=== PATIENT | male | born 1975 | race Caucasian/White ===

== ENCOUNTER → 2019-05-25 | Outpatient (REF) | payer OTHER, MEDICAID ==
[2019-05-25 17:41] LABS: ALBUMIN 3.8 GM/DL (3.2-5.2); ALT/SGPT 47 U/L (12-78); BILIRUBIN,TOTAL 0.8 MG/DL (0.2-1.0); BLOOD UREA NITROGEN 16 MG/DL (7-18); CALCIUM LEVEL 8.7 MG/DL (8.5-10.1); CARBON DIOXIDE LEVEL 29 MEQ/L (21-32); CHLORIDE LEVEL 105 MEQ/L (98-107); CHOLESTEROL LEVEL 149 MG/DL (<200); CHOLESTEROL RISK RATIO 4.257 (<5); CREATININE FOR GFR 0.92 MG/DL (0.70-1.30); FREE T4 1.05 NG/DL (0.76-1.46); GLOMERULAR FILTRATION RATE > 60.0 (>60); GLUCOSE, FASTING 116 MG/DL (70-100); HDL CHOLESTEROL 35 MG/DL (>40); LDL CHOLESTEROL 82 MG/DL (<100); NON-HDL-C 114 MG/DL; POTASSIUM SERUM 4.1 MEQ/L (3.5-5.1); SODIUM LEVEL 140 MEQ/L (136-145); TOTAL 25(OH) VITAMIN D 19.6 NG/ML (30.0-100.0); TOTAL PROTEIN 7.4 GM/DL (6.4-8.2); TRIGLYCERIDES LEVEL 158 MG/DL (<150)
[2019-05-25 17:43] LABS: HEMOGLOBIN A1c 6.2 %
[2019-05-25 18:24] LABS: BASO # 0.1 10^3/uL (0.0-0.2); BASO % 0.9 % (0.0-1.0); EOS # 0.2 10^3/uL (0.0-0.50); EOS % 3.6 % (0.0-3.0); HEMATOCRIT 52.9 % (42.0-52.0); HEMOGLOBIN 17.7 g/dl (13.5-17.5); LYMPH # 2.2 10^3/uL (1.5-4.5); LYMPH % 33.1 % (24.0-44.0); MEAN CORPUSCULAR HGB CONC 33.5 g/dl (32.0-36.5); MEAN CORPUSCULAR VOLUME 89.7 fl (80.0-96.0); MONO # 0.8 10^3/uL (0.0-0.8); NEUTROPHILS # 3.4 10^3/uL (1.8-7.7); NEUTROPHILS % 50.1 % (36.0-66.0); PLATELET COUNT, AUTOMATED 169 10^3/uL (150-450); WHITE BLOOD COUNT 6.7 10^3/uL (4.0-10.0)
== END ==
LOC: M LAB REF 16:35
PROVIDERS: ATTEND Nurse Practitioner Family
DX: Z13.9 Encounter for screening, unspecified (principal); E66.1 Drug-induced obesity

== ENCOUNTER 2020-02-03 05:01 | Inpatient (IN) | payer OTHER ==
[~2020-02-03] VITALS: Ht 177.8 cm; Wt 134.4 kg
[2020-02-03] MEDS ORDERED: ASPI81TA85 PO (05:07)
[2020-02-03 06:06] LABS: BASO # 0.1 10^3/uL (0.0-0.2); BASO % 0.7 % (0.0-1.0); EOS # 0.2 10^3/uL (0.0-0.5); EOS % 2.3 % (0.0-3.0); HEMATOCRIT 48.9 % (42.0-52.0); LYMPH # 1.6 10^3/uL (1.5-5.0); LYMPH % 16.2 % (24.0-44.0); MEAN CORPUSCULAR HEMOGLOBIN 29.8 pg (27.0-33.0); MEAN CORPUSCULAR HGB CONC 34.8 g/dl (32.0-36.5); MEAN CORPUSCULAR VOLUME 85.6 fl (80.0-96.0); MONO # 1.3 10^3/uL (0.0-0.8); MONO % 13.2 % (0.0-5.0); NEUTROPHILS # 6.7 10^3/uL (1.5-8.5); NEUTROPHILS % 67.2 % (36.0-66.0); PLATELET COUNT, AUTOMATED 132 10^3/uL (150-450); RED BLOOD COUNT 5.71 10^6/uL (4.30-6.10); WHITE BLOOD COUNT 9.9 10^3/uL (4.0-10.0)
[2020-02-03 06:12] LABS: INR 1.15; PROTHROMBIN TIME 14.4 SECONDS (11.8-14.0)
--- NOTE | 2020-02-03 06:21 | REPVR ---
PROCEDURE INFORMATION: Exam: US Duplex Left Lower Extremity Veins, Limited Exam date and time: 02/03/2020 6:10 AM Age: 44 years old Clinical indication: Pain; Leg, upper and leg, lower; Left; Additional info: Left leg swelling TECHNIQUE: Imaging protocol: Real-time Duplex ultrasound of the Left Lower Extremity with 2-D wood scale, color Doppler flow and spectral waveform analysis with image documentation. Limited exam focused on the left lower extremity veins. COMPARISON: No relevant prior studies available. FINDINGS: Deep veins: Abnormal intraluminal echogenicity throughout the level of the common femoral, superficial femoral, popliteal veins consistent with venous thrombosis with absence of venous flow consistent with complete exclusion. Superficial veins: Abnormal echogenicity at the greater saphenous junction. There is absence of compression or venous flow demonstrated. Soft tissues: Unremarkable. IMPRESSION: Complete occlusion deep venous thrombosis left common femoral through the popliteal distribution and greater saphenous junction. Electronically signed by: Roro Orantes On 02/03/2020 06:21:24 AM
[2020-02-03 06:32] LABS: BLOOD UREA NITROGEN 22 MG/DL (7-18); C REACTIVE PROTEIN QUANTITATIV 1.78 MG/DL (0.00-0.30); CARBON DIOXIDE LEVEL 28 MEQ/L (21-32); CHLORIDE LEVEL 106 MEQ/L (98-107); CREATININE FOR GFR 0.87 MG/DL (0.70-1.30); GLOMERULAR FILTRATION RATE > 60.0 (>60); GLUCOSE, FASTING 154 MG/DL (70-100); POTASSIUM SERUM 4.2 MEQ/L (3.5-5.1); SODIUM LEVEL 137 MEQ/L (136-145)
[2020-02-03] MEDS ORDERED: ISOVUE-370 76% 100ML VIAL As Ordered ONE (06:38)
--- NOTE | 2020-02-03 07:22 | REPVR ---
PROCEDURE INFORMATION: Exam: CT Angiography Chest With Contrast Exam date and time: 02/03/2020 6:25 AM Age: 44 years old Clinical indication: Shortness of breath; Additional info: SOB, tachycardia, dvt TECHNIQUE: Imaging protocol: Computed tomographic angiography of the chest with intravenous contrast. 3D rendering: MIP and/or 3D reconstructed images were created by the technologist. Radiation optimization: All CT scans at this facility use at least one of these dose optimization techniques: automated exposure control; mA and/or kV adjustment per patient size (includes targeted exams where dose is matched to clinical indication); or iterative reconstruction. Contrast material: ISO; Contrast volume: 75 ml; Contrast route: AC; COMPARISON: No relevant prior studies available. FINDINGS: Pulmonary arteries: Markedly limited assessment for the presence of pulmonary embolus due to delayed film contrast timing abnormality and diminished intensity of contrast within pulmonary arteries. Additional limitation by prominent motion degradation. Aorta: Trace calcification thoracic aortic arch. Lungs: Unremarkable. No consolidation. No masses. Pleural space: Unremarkable. No pneumothorax. No pleural effusion. Heart: Unremarkable. No cardiomegaly. No pericardial effusion. Right to left ventricular ratio 1.1. Adrenals: Calcification right adrenal gland. Stomach and bowel: Medication item likely within the stomach lumen. Lymph nodes: Unremarkable. No enlarged lymph nodes. Bones/joints: Degenerative change of the spine. Chronic fracture deformity of the right clavicle. Soft tissues: Unremarkable. IMPRESSION: 1. No visualized pulmonary embolus for the level of images acquired. Electronically signed by: Roro Orantes On 02/03/2020 07:21:30 AM
[2020-02-03] MEDS ORDERED: ONDANSETRON 4MG/2ML VIAL IV ONE (08:00)
[2020-02-03] MEDS ORDERED: HEPARIN SOD (PORCINE) 5000UNITS/ML VIAL (J1644 PER 1000UNITS) IV ONE (08:00)
[2020-02-03] MEDS ORDERED: NICOTINE POLACRILEX 2 MG GUM PO ONE (08:00)
[2020-02-03] MEDS ORDERED: HEPARIN DRIP 25,000 UNITS in IV 1 EA IV SCH (08:15)
[2020-02-03 08:29] LABS: BASO # 0.1 10^3/uL (0.0-0.2); BASO % 0.8 % (0.0-1.0); EOS # 0.1 10^3/uL (0.0-0.5); EOS % 0.9 % (0.0-3.0); HEMATOCRIT 49.3 % (42.0-52.0); HEMOGLOBIN 16.4 g/dl (13.5-17.5); LYMPH # 1.5 10^3/uL (1.5-5.0); LYMPH % 12.1 % (24.0-44.0); MEAN CORPUSCULAR HEMOGLOBIN 28.8 pg (27.0-33.0); MEAN CORPUSCULAR HGB CONC 33.3 g/dl (32.0-36.5); MEAN CORPUSCULAR VOLUME 86.6 fl (80.0-96.0); MONO # 1.5 10^3/uL (0.0-0.8); MONO % 11.7 % (0.0-5.0); NEUTROPHILS # 9.5 10^3/uL (1.5-8.5); NEUTROPHILS % 74.2 % (36.0-66.0); PLATELET COUNT, AUTOMATED 127 10^3/uL (150-450); RED BLOOD COUNT 5.69 10^6/uL (4.30-6.10); WHITE BLOOD COUNT 12.8 10^3/uL (4.0-10.0)
[2020-02-03] MEDS: MORPHINE 2 MG/ML 1ML VIAL (J2270) IV PRN ×2 (08:34→10:56)
[2020-02-03 08:55] LABS: ALBUMIN 3.9 GM/DL (3.2-5.2); ALT/SGPT 31 U/L (12-78); BILIRUBIN,DIRECT 0.2 MG/DL (0.0-0.2); BILIRUBIN,TOTAL 0.9 MG/DL (0.2-1.0); BLOOD UREA NITROGEN 19 MG/DL (7-18); CALCIUM LEVEL 8.8 MG/DL (8.5-10.1); CARBON DIOXIDE LEVEL 24 MEQ/L (21-32); CHLORIDE LEVEL 105 MEQ/L (98-107); CREATININE FOR GFR 0.85 MG/DL (0.70-1.30); GLOMERULAR FILTRATION RATE > 60.0 (>60); GLUCOSE, FASTING 121 MG/DL (70-100); POTASSIUM SERUM 4.5 MEQ/L (3.5-5.1); SODIUM LEVEL 136 MEQ/L (136-145)
[2020-02-03] MEDS ORDERED: ISOVUE-300 61% 50ML VIAL As Ordered ONE ×4 (09:51→14:17)
[2020-02-03] MEDS ORDERED: LIDOCAINE 1% MDV 20ML VIAL As Ordered ONE (09:51)
[2020-02-03] MEDS ORDERED: HEPARIN SOD (PORCINE) 5000UNITS/ML VIAL (J1644 PER 1000UNITS) IV PRN (10:45)
[2020-02-03 11:03] LABS: DRVV SCREEN 32.6 SEC
[2020-02-03 11:06] LABS: PTT LUPUS TYPE ANTICOAG SCREEN 0.8 (0-1.2)
[2020-02-03] MEDS ORDERED: diphenhydrAMINE 50MG/ML VIAL (J1200) As Ordered ONE (11:08)
[2020-02-03] MEDS ORDERED: MIDAZOLAM INJ 2MG/2ML VIAL (J2250 PER 1MG) As Ordered ONE ×2 (11:09→13:03)
[2020-02-03] MEDS ORDERED: fentaNYL 100 MCG/2 ML INJECTION (J3010) As Ordered ONE ×2 (11:09→13:03)
--- NOTE | 2020-02-03 11:59 | IRMSE ---
[facility] IR Moderate Sedation Eval. Date and Time Date: Feb 03, 2020 Time: 11:58 ASA Classification ASA Classification: II-Mild systemic disease Mallampati Score: II NPO: Yes Obstructive Sleep Apnea: No Interval Plan: moderate sedation ARNAUD MÁRQUEZ MD Feb 03, 2020 11:59
--- NOTE | 2020-02-03 12:34 | HPEPDOC ---
[facility] Medical History & Physical Date of Admission Feb 03, 2020 Date of Service: Feb 03, 2020 Attending Physician: AUGUST GEORGE MD History and Physical CHIEF COMPLAINT: Leg pain and swelling HISTORY OF PRESENT ILLNESS: 44 y.o male w/ history of obesity & prediabetes presents with left leg pain and swelling. He hurt his low back 10 days ago while lifting a heavy box. He has been practically bed bound since then, started noticing L leg pain/swelling over the past couple of days, came to the hospital today due to worsening of symptoms. He denies any associated symptoms, denies SOB, CP, N/V/D or abdominal pain. In the ED, he is found to have large occlusive LLE DVT. He has been started on heparin gtt and hospitalist service called for admission. 10 point review of system is negative except for above. PAST MEDICAL HISTORY: 1. Prediabetic PAST SURGICAL HISTORY: 1. Multiple joint surgeries SOCIAL HISTORY: Smokes 1/2 PPD social alcohol use rare marijuana use FAMILY HISTORY: Heart disease on mother's side ALLERGIES: Please see below. HOME MEDICATIONS: Please see below. PHYSICAL EXAMINATION: VITAL SIGNS: See below GENERAL APPEARANCE: No distress, morbidly obese HEENT: Moist mucus membranes CARDIOVASCULAR: S1, S2, tachycardic LUNGS: poor air movement, diminished ABDOMEN: soft, non-tender, non-distended, +BS EXTREMITIES: LLE with erythema, tenderness to palpation & swelling NEUROLOGICAL: No focal deficits PSYCHIATRIC: anxious LABORATORY DATA: See below. IMAGING: LE doppler showing occlusive DVT from common femoral to the popliteal vein MICROBIOLOGY: Please see below. ASSESSMENT: 44 y.o male w/o any PMH is a being admitted to new, large LLE DVT after being immobile secondary to back pain. PLAN: 1. Large, occlusive, Left lower extremity DVT - heparin gtt, IR consulted for thrombectomy/TPA, plan for procedure later today, NPO, CTA negative for PE. hemodynamically stable, on RA. 2. Smoker/Pre-diabetic/Morbidly obese - counseled regarding smoking cessation, exercise & diet control for weight loss. DVT prophylaxis - Heparin gtt GI prophylaxis - not needed at this time. Vital Signs Vital Signs Date Time Temp Pulse Resp B/P (MAP) Pulse Ox O2 Delivery O2 Flow Rate FiO2 02/03/20 10:56 18 Room Air 02/03/20 09:16 117 94 02/03/20 08:46 122/84 (97) 02/03/20 05:02 97.2 Laboratory Data Labs 24H Laboratory Tests 2 02/03/20 05:53: Immature Granulocyte % (Auto) 0.4, Neutrophils (%) (Auto) 67.2H, Lymphocytes (%) (Auto) 16.2L, Monocytes (%) (Auto) 13.2H, Eosinophils (%) (Auto) 2.3, Basophils (%) (Auto) 0.7, Neutrophils # (Auto) 6.7, Lymphocytes # (Auto) 1.6, Monocytes # (Auto) 1.3H, Eosinophils # (Auto) 0.2, Basophils # (Auto) 0.1, Nucleated Red Blood Cells % (auto) 0.0, Prothrombin Time 14.4H, Prothromb Time International Ratio 1.15, Activated Partial Thromboplast Time 28.0, Anion Gap 3L, Glomerular Filtration Rate > 60.0, Calcium Level 9.0, C-Reactive Protein, Quantitative 1.78H 02/03/20 08:13: Immature Granulocyte % (Auto) 0.3, Neutrophils (%) (Auto) 74.2H, Lymphocytes (%) (Auto) 12.1L, Monocytes (%) (Auto) 11.7H, Eosinophils (%) (Auto) 0.9, Basophils (%) (Auto) 0.8, Neutrophils # (Auto) 9.5H, Lymphocytes # (Auto) 1.5, Monocytes # (Auto) 1.5H, Eosinophils # (Auto) 0.1, Basophils # (Auto) 0.1, Nucleated Red Blood Cells % (auto) 0.0, Anion Gap 7L, Glomerular Filtration Rate > 60.0, Otoniel cium Level 8.8, Lupus Anticoag DRVVT Screen Ratio 0.8, Total Bilirubin 0.9, Direct Bilirubin 0.2, Aspartate Amino Transf (AST/SGOT) 16, Alanine Aminotransferase (ALT/SGPT) 31, Alkaline Phosphatase 95, Total Protein 8.0, Albumin 3.9, Albumin/Globulin Ratio 0.95L 02/03/20 10:56: CBC/BMP Laboratory Tests 02/03/20 05:53 02/03/20 08:13 Home Medications Scheduled Aspirin (Aspir 81) 81 Mg Tablet.dr, 81 MG PO DAILY Allergies Coded Allergies: No Known Drug Allergies (Verified Allergy, Unknown, 02/03/20) A-FIB/CHADSVASC A-FIB History Current/History of A-Fib/PAF?: No AUGUST GEORGE MD Feb 03, 2020 12:34
[2020-02-03] MEDS ORDERED: PROMETHAZINE INJ 25 MG/ML VIAL (J2550) As Ordered ONE (13:08)
--- NOTE | 2020-02-03 14:48 | POST-OPPD ---
Postoperative Procedure Note Date Of Procedure: Feb 03, 2020 Time Of Procedure: 14:44 PREOPERATIVE DIAGNOSIS: LLE DVT POSTOPERATIVE DIAGNOSIS: same FINDINGS: absent IVC. Azygos and hemiazygous drainage via collaterals. Thrombus in left femoral vein and common femoral vein. Thrombectomy performed. But poor central drainage due to congenital or chronic venous anomalies. Will require further work up with CTV or MRV. Continue heparin and initiate alf anticoagulation. PROCEDURE: venogram and mechanical thrombectomy SURGEON: isa ANESTHESIA: mod sed ESTIMATED BLOOD LOSS: 200 ml COMPLICATIONS: none POSTOPERATIVE CONDITION: stable ARNAUD MÁRQUEZ MD Feb 03, 2020 14:48
[2020-02-03 15:00] VITALS: BP 140/100
[2020-02-03 15:15] VITALS: BP 143/101
[2020-02-03 15:30] VITALS: BP 170/118
[2020-02-03] MEDS ORDERED: ACETAMINOPHEN TAB 650MG DOSE (2X325MG) PO PRN (15:30)
[2020-02-03 15:45] VITALS: BP 198/136
[2020-02-03 16:00] VITALS: BP 180/126
[2020-02-03] MEDS: HEPARIN DRIP 25,000 UNITS in IV 1 EA IV SCH (16:30)
[2020-02-03 20:00] VITALS: BP 160/98
[2020-02-04] VITALS: BP 155/90
--- NOTE | 2020-02-04 00:48 | ECGEPIP ---
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
[2020-02-04] MEDS: HEPARIN DRIP 25,000 UNITS in IV 1 EA IV SCH ×4 (01:20→15:37)
[2020-02-04] MEDS: MORPHINE 4 MG/ML 1ML VIAL/SYRINGE (J2270) IV PRN ×3 (01:23→20:16)
[2020-02-04 04:00] VITALS: BP 140/93
[2020-02-04 06:40] LABS: HEMATOCRIT 43.6 % (42.0-52.0); HEMOGLOBIN 14.7 g/dl (13.5-17.5); MEAN CORPUSCULAR HEMOGLOBIN 29.4 pg (27.0-33.0); MEAN CORPUSCULAR HGB CONC 33.7 g/dl (32.0-36.5); MEAN CORPUSCULAR VOLUME 87.2 fl (80.0-96.0); PLATELET COUNT, AUTOMATED 123 10^3/uL (150-450); WHITE BLOOD COUNT 11.9 10^3/uL (4.0-10.0)
[2020-02-04 07:04] LABS: ALBUMIN 3.3 GM/DL (3.2-5.2); ALT/SGPT 33 U/L (12-78); BILIRUBIN,TOTAL 1.7 MG/DL (0.2-1.0); BLOOD UREA NITROGEN 21 MG/DL (7-18); CALCIUM LEVEL 8.4 MG/DL (8.5-10.1); CARBON DIOXIDE LEVEL 26 MEQ/L (21-32); CHLORIDE LEVEL 101 MEQ/L (98-107); CREATININE FOR GFR 0.89 MG/DL (0.70-1.30); GLOMERULAR FILTRATION RATE > 60.0 (>60); GLUCOSE, FASTING 158 MG/DL (70-100); MAGNESIUM LEVEL 1.9 MG/DL (1.8-2.4); POTASSIUM SERUM 3.8 MEQ/L (3.5-5.1); SODIUM LEVEL 134 MEQ/L (136-145); TOTAL PROTEIN 7.4 GM/DL (6.4-8.2)
[2020-02-04 08:00] VITALS: BP 146/97
--- NOTE | 2020-02-04 11:06 | IPNPDOC ---
Date Seen The patient was seen on 02/04/20. Progress Note SUBJECTIVE: 44 y.o male w/ history of obesity & prediabetes , was admitted for large left lower extremity DVT. Patient underwent mechanical thrombectomy by interventional radiology yesterday, tolerated the procedure well, having pain, which is well controlled, no other complaint at this time. He denies any shortness of breath, chest pain, nausea, vomiting, diarrhea or constipation. 10 point review of system is negative except for above. PHYSICAL EXAMINATION: VITAL SIGNS: See below GENERAL APPEARANCE: No distress, morbidly obese HEENT: Moist mucus membranes CARDIOVASCULAR: S1, S2, tachycardic LUNGS: poor air movement, diminished ABDOMEN: soft, non-tender, non-distended, +BS EXTREMITIES: LLE with erythema, tenderness to palpation & swelling NEUROLOGICAL: No focal deficits PSYCHIATRIC: anxious LABORATORY DATA: See below. MICROBIOLOGY: Please see below. ASSESSMENT: 44 y.o male w/o any PMH is a being admitted to new, large LLE DVT after being immobile secondary to back pain. PLAN: 1. Large, occlusive, Left lower extremity DVT - Status post mechanical thrombectomy by interventional radiology, continue heparin gtt, titration with target PTT has been difficult, will switch to Lovenox if PTT control remains poor tomorrow. 2. Smoker/Pre-diabetic/Morbidly obese - counseled regarding smoking cessation, exercise & diet control for weight loss. DVT prophylaxis - Heparin gtt GI prophylaxis - not needed at this time. VS, I&O, 24H, Fishbone Vital Signs/I&O Vital Signs Date Time Temp Pulse Resp B/P (MAP) Pulse Ox O2 Delivery O2 Flow Rate FiO2 02/04/20 08:00 97.3 111 20 146/97 (113) 92 Room Air 02/03/20 14:25 2 I&O- Last 24 Hours up to 6 AM 02/04/20 06:00 Intake Total 840 ml Output Total 0 ml Balance 840 ml Laboratory Data 24H LABS Laboratory Tests 2 02/03/20 12:16: Activated Partial Thromboplast Time 186.3*H 02/03/20 15:51: Activated Partial Thromboplast Time 30.1 02/03/20 18:36: Activated Partial Thromboplast Time 47.4H 02/04/20 00:31: Activated Partial Thromboplast Time > 240.0*H 02/04/20 05:59: Nucleated Red Blood Cells % (auto) 0.0, Anion Gap 7L, Glomerular Filtration Rate > 60.0, Calcium Level 8.4L, Magnesium Level 1.9, Total Bilirubin 1.7#H, Aspartate Amino Transf (AST/SGOT) 28, Alanine Aminotransferase (ALT/SGPT) 33, Alkaline Phosphatase 60, Total Protein 7.4, Albumin 3.3, Albumin/Globulin Ratio 0.80L 02/04/20 08:31: Activated Partial Thromboplast Time 169.6*H 02/04/20 09:51: Activated Partial Thromboplast Time 150.4*H 02/04/20 10:50: CBC/BMP Laboratory Tests 02/04/20 05:59 AUGUST GEORGE MD Feb 04, 2020 11:06
[2020-02-04 12:00] VITALS: BP 148/83
[2020-02-04] MEDS ORDERED: ONDANSETRON 4MG/2ML VIAL IV PRN (15:45)
[2020-02-04 16:00] VITALS: BP 145/94
[2020-02-04 20:00] VITALS: BP 126/87
[2020-02-05] VITALS (7 sets, daily range): BP systolic 137–160; BP diastolic 75–103
[2020-02-05] MEDS: MORPHINE 4 MG/ML 1ML VIAL/SYRINGE (J2270) IV PRN (05:20)
[2020-02-05] MEDS: HEPARIN DRIP 25,000 UNITS in IV 1 EA IV SCH ×2 (06:01→20:02)
[2020-02-05 06:46] LABS: HEMATOCRIT 40.1 % (42.0-52.0); HEMOGLOBIN 13.6 g/dl (13.5-17.5); MEAN CORPUSCULAR HEMOGLOBIN 29.4 pg (27.0-33.0); MEAN CORPUSCULAR HGB CONC 33.9 g/dl (32.0-36.5); MEAN CORPUSCULAR VOLUME 86.8 fl (80.0-96.0); PLATELET COUNT, AUTOMATED 131 10^3/uL (150-450); RED BLOOD COUNT 4.62 10^6/uL (4.30-6.10); WHITE BLOOD COUNT 12.1 10^3/uL (4.0-10.0)
[2020-02-05 07:05] LABS: BLOOD UREA NITROGEN 20 MG/DL (7-18); CALCIUM LEVEL 8.8 MG/DL (8.5-10.1); CARBON DIOXIDE LEVEL 28 MEQ/L (21-32); CHLORIDE LEVEL 98 MEQ/L (98-107); CREATININE FOR GFR 0.81 MG/DL (0.70-1.30); GLOMERULAR FILTRATION RATE > 60.0 (>60); GLUCOSE, FASTING 166 MG/DL (70-100); PHOSPHORUS LEVEL 2.6 MG/DL (2.5-4.9); POTASSIUM SERUM 3.8 MEQ/L (3.5-5.1); SODIUM LEVEL 131 MEQ/L (136-145)
[2020-02-05] MEDS: MIRALAX *UNIT DOSE* 17GM PACKET PO PRN (10:15)
[2020-02-05] MEDS: PERCOCET 5MG/325MG TAB PO PRN ×3 (11:10→22:35)
--- NOTE | 2020-02-05 15:16 | IPNPDOC ---
Date Seen The patient was seen on 02/05/20. Progress Note SUBJECTIVE: 44 y.o male w/ history of obesity & prediabetes , was admitted for large left lower extremity DVT, underwent thrombectomy by IR. Patient seen in the morning, no events overnight, comfortable, no complaints at this time. He denies any shortness of breath, chest pain, nausea, vomiting, diarrhea or constipation. 10 point review of system is negative except for above. PHYSICAL EXAMINATION: VITAL SIGNS: See below GENERAL APPEARANCE: No distress, morbidly obese HEENT: Moist mucus membranes CARDIOVASCULAR: S1, S2, tachycardic LUNGS: poor air movement, diminished ABDOMEN: soft, non-tender, non-distended, +BS EXTREMITIES: LLE with erythema, tenderness to palpation & swelling NEUROLOGICAL: No focal deficits PSYCHIATRIC: anxious LABORATORY DATA: See below. MICROBIOLOGY: Please see below. ASSESSMENT: 44 y.o male w/o any PMH is a being admitted to new, large LLE DVT after being immobile secondary to back pain. PLAN: 1. Large, occlusive, Left lower extremity DVT - Status post mechanical thrombectomy by interventional radiology, continue heparin gtt, PTT therapeutic, continue heparin gtt for today, transition to oral AC tomorrow. 2. Smoker/Pre-diabetic/Morbidly obese - counseled regarding smoking cessation, exercise & diet control for weight loss. DVT prophylaxis - Heparin gtt GI prophylaxis - not needed at this time. VS, I&O, 24H, Fishbone Vital Signs/I&O Vital Signs Date Time Temp Pulse Resp B/P (MAP) Pulse Ox O2 Delivery O2 Flow Rate FiO2 02/05/20 12:04 18 02/05/20 12:00 96.5 112 148/95 (112) 95 Room Air 02/03/20 14:25 2 I&O- Last 24 Hours up to 6 AM 02/05/20 06:00 Intake Total 1800 ml Output Total 300 ml Balance 1500 ml Laboratory Data 24H LABS Laboratory Tests 2 02/04/20 18:15: Activated Partial Thromboplast Time 69.1H 02/04/20 23:49: Activated Partial Thromboplast Time 80.8H 02/05/20 06:31: Activated Partial Thromboplast Time 69.4H, Nucleated Red Blood Cells % (auto) 0.0, Anion Gap 5L, Glomerular Filtration Rate > 60.0, Calcium Level 8.8, Phosphorus Level 2.6 CBC/BMP Laboratory Tests 02/05/20 06:31 AUGUST GEORGE MD Feb 05, 2020 15:16
[2020-02-06] VITALS: BP 168/75
[2020-02-06] MEDS: PERCOCET 5MG/325MG TAB PO PRN ×3 (02:42→15:21)
[2020-02-06 04:00] VITALS: BP 146/77
[2020-02-06 04:48] LABS: HEMATOCRIT 35.4 % (42.0-52.0); HEMOGLOBIN 11.9 g/dl (13.5-17.5); MEAN CORPUSCULAR HEMOGLOBIN 29.2 pg (27.0-33.0); MEAN CORPUSCULAR HGB CONC 33.6 g/dl (32.0-36.5); PLATELET COUNT, AUTOMATED 143 10^3/uL (150-450); RED BLOOD COUNT 4.07 10^6/uL (4.30-6.10); WHITE BLOOD COUNT 11.1 10^3/uL (4.0-10.0)
[2020-02-06 05:20] LABS: BLOOD UREA NITROGEN 19 MG/DL (7-18); CALCIUM LEVEL 7.9 MG/DL (8.5-10.1); CARBON DIOXIDE LEVEL 29 MEQ/L (21-32); CHLORIDE LEVEL 98 MEQ/L (98-107); CREATININE FOR GFR 0.68 MG/DL (0.70-1.30); GLOMERULAR FILTRATION RATE > 60.0 (>60); GLUCOSE, FASTING 132 MG/DL (70-100); POTASSIUM SERUM 3.8 MEQ/L (3.5-5.1); SODIUM LEVEL 133 MEQ/L (136-145)
[2020-02-06 08:00] VITALS: BP 160/76
[2020-02-06] MEDS ORDERED: ELIQ5TAB PO (08:31)
[2020-02-06] MEDS ORDERED: APIXABAN 5 MG TAB (ELIQUIS) PO SCH (09:00)
[2020-02-06] MEDS: MIRALAX *UNIT DOSE* 17GM PACKET PO PRN (09:15)
--- NOTE | 2020-02-06 11:15 | REP ---
IR Left leg venography. IR Left femoral vein, common femoral vein and iliac vein venography. IR Left femoral, common femoral and iliac vein mechanical thrombectomy. IR DVT mechanical thrombectomy. IR Central venography. IR Moderate sedation. IR Ultrasound guided right common femoral vein access. IR Ultrasound guided left popliteal vein access. Clinical information: Extreme left lower extremity swelling, pain and occlusive left lower extremity deep vein thrombosis including common femoral on ultrasound. Physician: Dr. Castro. Procedure: The patient was advised of the benefits, risks and alternatives of the procedure and informed consent was obtained. The time-out was performed with verification of the patient's name MRN, site of procedure and type of procedure to be performed. The patient was positioned in the supine position on the angiographic table. The site was prepped and draped in the usual sterile fashion. Moderate sedation was performed by the physician including the presence of an independent trained observer who assisted in monitoring the patient's level of consciousness and physiologic status. Following the administration of fentanyl and Versed , the physician spent 120 minutes of continuous face to face time with the patient. A hazmat technician radiograph reveals no gross abnormality. Ultrasound of the right groin demonstrates patent and compressible right common femoral vein. A micropuncture needle was used under ultrasound guidance to access the right common femoral vein. An 018 wire was advanced into the central vein and the micropuncture needle was exchanged for a micro sheath. The micro sheath was exchanged over the wire for a filter sheath, under fluoroscopy guidance. The filter sheath was positioned in the right common femoral vein and a central venogram was performed. 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 Tortuous collaterals, and hypertrophy of the azygos system with filling of paravertevral collaterals. There is central drainage via multiple tortuous collaterals and hypertrophied azygos and michel azygos system. The patient is not suitable for IVC filter placement. Access was removed, pressure held and hemostasis achieved. A sterile dressing was applied to the site. Ultrasound of the left popliteal fossa was then performed and demonstrates partially incompressible left popliteal vein. A micropuncture needle was used under ultrasound guidance to access the left popliteal vein. An 018 wire was advanced into the femoral vein under fluoroscopy guidance and the micropuncture needle was exchanged for a micro sheath. The micro sheath was exchanged under fluoroscopy guidance for an 8-[place] sheath. A left leg venogram was performed and this demonstrates expanded mid and distal femoral vein with central filling defect indicating acute thrombus within the femoral vein. A venogram further up the left leg was performed and this demonstrates complete occlusion of the central left femoral, left common femoral and iliac vein. No central drainage from the left leg. A CAT 8 mechanical thrombectomy device was advanced over the wire under fluoroscopy guidance and used to catheterize the peripheral left femoral vein. Mechanical thrombectomy was performed in the left femoral vein. Full systemic heparinization was continued. Intermittent venography was performed and this demonstrates appropriate clearing of thrombus within the treated area. Mechanical thrombectomy was then performed in the left common femoral and left iliac vein, under fluoroscopy guidance. A follow-up venogram was performed this demonstrates sluggish flow with mild persistent reflux but now there is flow in the common femoral vein. The catheter in conjunction with a wire was used to catheterize the left iliac vein up to its anticipated bifurcation. A venogram was performed this demonstrates flow in the left iliac vein and adequate removal of thrombus. However central drainage is still poor due to absent IVC and filling of collaterals, azygous and michel azygos system. Catheter and wire were removed. The left popliteal vein access was removed, pressure held and hemostasis achieved. A sterile dressing was applied to the site. The patient tolerated the procedure well and was returned to PRU in stable condition. EBL: 200 ml. Complications: None. Conclusion: 1. Central venography demonstrates absent inferior vena cava and tortuous collaterals, drainage via paravertebral veins and hypertrophy of the azygos and michel azygos system. 2. Left leg venogram demonstrates acute occlusive thrombus within the left femoral vein, common femoral vein and iliac vein. 3. Successful mechanical thrombectomy of acute thrombus within the left femoral, common femoral and iliac vein. 4. Patient to follow up in IR clinic in [address] venogram abdomen pelvis. Thank you this referral. Electronically Signed by Vanita Castro MD 02/06/2020 11:14 A
[2020-02-06 11:56] VITALS: BP 136/86
--- NOTE | 2020-02-06 13:28 | DS.PDOC ---
Discharge Summary General Date of Admission Feb 03, 2020 at 08:36 Date of Discharge 02/06/2020 Attending Physician: AUGUST GEORGE MD Discharge Summary PROCEDURES PERFORMED DURING STAY: None. ADMITTING DIAGNOSES: 1. Left lower extremity DVT. DISCHARGE DIAGNOSES: 1. Left lower extremity DVT. COMPLICATIONS/CHIEF COMPLAINT: Deep Venous Thrombosis. HISTORY OF PRESENT ILLNESS: 44-year-old male with no significant past medical history, was admitted for large occlusive left lower extremity DVT. He injured his back while carrying a heavy object and was bedbound for an entire week, presented to hospital with left lower extremity swelling, redness and pain. Ultrasound showed an occlusive DVT, ranging from femoral vein down to popliteal. Patient underwent mechanical thrombectomy by interventional radiology. Patient has done well postprocedure, evaluated and cleared by physical therapy for discharge home. Patient was initially treated with heparin drip, we'll transition to Eliquis today, start at 10 mg twice a day for 7 days followed by 5 mg creatinine. Patient is hemodynamically stable for discharge, recommend outpatient follow-up with PCP in 1-2 weeks. Patient probably has undiagnosed sleep apnea, strongly advised to follow up outpatient with sleep physician for a sleep study. HOSPITAL COURSE: As above. DISCHARGE MEDICATIONS: Please see below. ALLERGIES: Please see below. PHYSICAL EXAMINATION: VITAL SIGNS: See below GENERAL APPEARANCE: No distress, morbidly obese HEENT: Moist mucus membranes CARDIOVASCULAR: S1, S2, tachycardic LUNGS: diminished, no wheezing ABDOMEN: soft, non-tender, non-distended, +BS EXTREMITIES: LLE with erythema, mild tenderness to palpation & swelling NEUROLOGICAL: No focal deficits PSYCHIATRIC: Calm LABORATORY DATA: Please see below. IMAGING: Doppler showing occlusive thrombus from femoral to popliteal vein in the left lower extremity PROGNOSIS: Fair ACTIVITY: As tolerated. DIET: Cardiac DISCHARGE PLAN: Follow with PCP and sleep physician in one to 2 weeks DISPOSITION: Home. DISCHARGE INSTRUCTIONS: 1. As above DISCHARGE CONDITION: Stable. TIME SPENT ON DISCHARGE: Greater than 33 minutes. Vital Signs/I&Os Vital Signs Date Time Temp Pulse Resp B/P (MAP) Pulse Ox O2 Delivery O2 Flow Rate FiO2 02/06/20 11:56 96.8 113 18 136/86 (103) 94 Room Air 02/03/20 14:25 2 I&O- Last 24 Hours up to 6 AM 02/06/20 05:59 Intake Total 1320 ml Output Total 250 ml Balance 1070 ml Laboratory Data Labs 24H Laboratory Tests 2 02/06/20 04:20: Nucleated Red Blood Cells % (auto) 0.0, Activated Partial Thromboplast Time 86.1H, Anion Gap 6L, Glomerular Filtration Rate > 60.0, Calcium Level 7.9L CBC/BMP Laboratory Tests 02/06/20 04:20 Discharge Medications Scheduled Apixaban (Eliquis) 5 Mg Tablet, 1 TAB PO BID Take 10 mg BID for 7 days (including doses received in the hospital), followed by 5 mg BID. Allergies Coded Allergies: No Known Drug Allergies (Verified Allergy, Unknown, 02/03/20) AUGUST GEORGE MD Feb 06, 2020 13:28
[2020-02-07] MEDS ORDERED: OXYC1TAB23 PO (11:33)
[2020-02-10 14:06] LABS: ANTI THROMBIN 3 ANTIGEN IMMUNO 75 % (72-124); ANTI THROMBIN 3 FUNCT ACTIVITY 90 % (75-135); CARDIOLIPIN IGA ANTIBODY <9 APL U/mL (0-11); CARDIOLIPIN IGG ANTIBODY 11 GPL U/mL (0-14); CARDIOLIPIN IGM ANTIBODY <9 MPL U/mL (0-12); PHOSPHOLIPIDS LEVEL 214 mg/dL (150-250); PROTEIN C FUNCTIONAL ACTIVITY 79 % (73-180); PROTEIN S FUNCTIONAL ACTIVITY 90 % (63-140)
== END 2020-02-06 16:14 | disposition home or self-care (01) | DRG 180 ==
LOC: M ED 05:01 → M ED INP 08:36 → ENRESERVTM 08:54 → ENRESERVDT 08:54 → M PCU 09:25
PROVIDERS: ADMIT Internal Medicine; ATTEND Internal Medicine
PROC: 06CN0ZZ Extirpation of Matter from Left Femoral Vein, Open Approach (ICD-10-PCS; principal; 2020-02-03 13:00)
DX: I82.412 Acute embolism and thrombosis of left femoral vein (principal); I82.422 Acute embolism and thrombosis of left iliac vein; E66.01 Morbid (severe) obesity due to excess calories; F17.200 Nicotine dependence, unspecified, uncomplicated

== ENCOUNTER 2020-02-09 03:55 | Inpatient (IN) | payer OTHER ==
[~2020-02-09] VITALS: Ht 177.8 cm; Wt 130.0 kg
[~2020-02-09 03:55] MED LIST: ASPI81TA85 PO; ELIQ5TAB PO; OXYC1TAB23 PO
[2020-02-09 04:23] LABS: BASO # 0.1 10^3/uL (0.0-0.2); BASO % 0.5 % (0.0-1.0); EOS # 0.3 10^3/uL (0.0-0.5); EOS % 2.7 % (0.0-3.0); HEMATOCRIT 31.9 % (42.0-52.0); HEMOGLOBIN 10.7 g/dl (13.5-17.5); LYMPH # 1.7 10^3/uL (1.5-5.0); LYMPH % 15.7 % (24.0-44.0); MEAN CORPUSCULAR HEMOGLOBIN 29.3 pg (27.0-33.0); MEAN CORPUSCULAR HGB CONC 33.5 g/dl (32.0-36.5); MEAN CORPUSCULAR VOLUME 87.4 fl (80.0-96.0); MONO # 1.7 10^3/uL (0.0-0.8); MONO % 15.6 % (0.0-5.0); NEUTROPHILS # 7.1 10^3/uL (1.5-8.5); PLATELET COUNT, AUTOMATED 211 10^3/uL (150-450); RED BLOOD COUNT 3.65 10^6/uL (4.30-6.10); WHITE BLOOD COUNT 10.9 10^3/uL (4.0-10.0)
[2020-02-09 04:34] LABS: INR 1.5; PARTIAL THROMBOPLASTIN TIME 35.8 SECONDS (25.0-38.4); PROTHROMBIN TIME 17.9 SECONDS (11.8-14.0)
[2020-02-09 04:48] LABS: BLOOD UREA NITROGEN 15 MG/DL (7-18); CALCIUM LEVEL 8.2 MG/DL (8.5-10.1); CARBON DIOXIDE LEVEL 29 MEQ/L (21-32); CHLORIDE LEVEL 101 MEQ/L (98-107); CREATININE FOR GFR 0.65 MG/DL (0.70-1.30); GLOMERULAR FILTRATION RATE > 60.0 (>60); GLUCOSE, FASTING 136 MG/DL (70-100); POTASSIUM SERUM 3.9 MEQ/L (3.5-5.1); SODIUM LEVEL 136 MEQ/L (136-145)
[2020-02-09 05:01] LABS: ERYTHROCYTE SEDIMENTATION RATE 54 mm/hr (0-15)
--- NOTE | 2020-02-09 05:04 | REPVR ---
PROCEDURE INFORMATION: Exam: US Duplex Left Lower Extremity Veins, Limited Exam date and time: 02/09/2020 4:42 AM Age: 44 years old Clinical indication: Pain; Leg, lower; Left; Prior surgery; Surgery date: 3-7 days post-operative; Surgery type: Thrombophlebectomy; Additional info: R/O dvt TECHNIQUE: Imaging protocol: Real-time Duplex ultrasound of the Left Lower Extremity with 2-D wood scale, color Doppler flow and spectral waveform analysis with image documentation. Limited exam focused on the left lower extremity veins. COMPARISON: US Duplex, Ext,LOWER veins,unilat LEFT 02/03/2020 5:59 AM FINDINGS: Left deep veins: Occlusive thrombus within the left common femoral, femoral, and popliteal veins. Absent Doppler waveforms. Absent compressibility and/or augmentation response. Left superficial veins: Occlusive thrombus at the left saphenofemoral junction. Soft tissues: Generalized soft tissue swelling. IMPRESSION: Completely occlusive left deep venous thrombosis from the left common femoral vein through the popliteal vein and involving the saphenofemoral junction. Electronically signed by: Emiliano Schilling On 02/09/2020 05:03:34 AM
[2020-02-09] MEDS ORDERED: ELIQ5TAB PO (05:36)
[2020-02-09] MEDS ORDERED: OXYC1TAB23 PO (05:36)
[2020-02-09] MEDS ORDERED: COMMENTS (05:36)
[2020-02-09] MEDS ORDERED: ACETAMINOPHEN TAB 650MG DOSE (2X325MG) PO PRN (06:00)
[2020-02-09] MEDS ORDERED: PERCOCET 5MG/325MG TAB PO PRN (06:00)
[2020-02-09] MEDS ORDERED: HEPARIN SOD (PORCINE) 5000UNITS/ML VIAL (J1644 PER 1000UNITS) IV ONE (06:00)
[2020-02-09] MEDS ORDERED: HEPARIN SOD (PORCINE) 5000UNITS/ML VIAL (J1644 PER 1000UNITS) IV PRN (06:00)
[2020-02-09] MEDS ORDERED: MOM 30ML SUSPENSION UDC PO PRN (06:00)
[2020-02-09] MEDS: MORPHINE 2 MG/ML 1ML VIAL (J2270) IV PRN ×4 (06:11→17:23)
--- NOTE | 2020-02-09 07:22 | HPEPDOC ---
General Date of Admission Feb 09, 2020 at 06:34 Date of Service: Feb 09, 2020 Attending Physician: TJ RAND MD Chief Complaint The patient is a 44-year-old male admitted with a reason for visit of Deep Vein Thrombosis. History of Present Illness HPI: This is a 44-year-old gentleman recently hospitalized February 02 through February 05 for a left lower extremity DVT s/p thrombectomy with Dr. Castro. He was discharged on a liquid was which he reports he has taken as prescribed, also quit smoking since his discharge 3 days ago and has increased ambulation and use compression stockings. He now returns for increased swelling and pain of the l eft lower extremity since yesterday without any inciting factors, similar to his initial episode couple of days ago on the prior admission. Denies all other complaints. No fever, shortness of breath, chest pain, lightheadedness or any other swelling. In the ER, he was noted to have completely occlusive left DVT from the left common femoral vein through the popliteal vein and involving the saphenofemoral junction. Of note, he is also noted to have a hemoglobin of 10 on this visit, with his baseline being 14-16. He reports he did have bright red blood per rectum, leaking at rest, and with bowel movements. He states this ultimately resolved 2 days ago and he has not noted any more hematochezia or melena or any other blood loss. He is asymptomatic and denies any prior history of bleeds. PMH: Prediabetes Tobacco use disorder History of left lower extremity DVT Morbid obesity Past Surgical Hx: Left leg DVT thrombectomy Family Hx: Cardiac disease Hypertension Dyslipidemia Social Hx: Active tobacco use half pack to 1 pack per day since mid 20s. Quit last week Occasional alcohol Occasional snorting of cocaine, most recently 2-3 weeks ago Denies any IV drug usage ROS: Constitutional: Denies fever, chills, night sweats, weight loss HEENT: Denies headache, dysphagia Skin: Denies any rashes or lesions Pulmonary: Denies dyspnea, cough, wheezing Cardiac: Denies chest pain, palpitations, orthopnea, PND, edema, lightheadedness GI: Denies nausea, vomiting, abdominal pain, diarrhea, constipation, melena. Admits to bright blood leaking out of rectum, and in BM as noted in HPI, now resolved. No hematemesis : Denies hematuria MSK: Denies new weakness. Admits to pain & swelling left leg as noted in HPI Neurologic: Denies new numbness/tingling PHYSICAL: General exam: A&Ox3, NAD, resting comfortably HEENT: NCAT, EOMI, neck supple, moist mucous membranes Cardiac: RRR, normal S1 & S2, no murmurs Respiratory: CTAB, good air exchange, no w/r/r, speaking full sentences without accessory muscle use Abdomen: soft, NT, ND, normoactive bowel sounds Extremity: 2+ radial pulses, left lower extremity significantly swollen with erythema and warmth compared to the right from the knee down, positive calf tenderness on the left Skin: [place], warm, dry, no visible rash or ulcers Msk: strength 5/5 x4, normal tone Neuro: normal speech, no focal deficits Psych: Normal mood and affect LABORATORY DATA, MICROBIOLOGY: Please see below. ASSESSMENT AND PLAN: This is a morbidly obese 44-year-old male recently diagnosed with left lower extremity DVT and underwent thrombectomy 02/03/2020 discharged on a liquid was now returning for worsening leg swelling and pain, found to have a Alberto occlusive DVT in the same region. 1. LLE occlusive DVT - LLE pain, swelling, tightness, redness, warmth gradually since yesterday - s/p thrombectomy [address] Castro - admits to taking Eliquis as prescribed, quit smoking, walked more & used compression stockings since hospital discharge - Doppler on this admission: "Completely occlusive left deep venous thrombosis from the left common femoral vein through the popliteal vein and involving the saphenofemoral junction." - Will start patient on a heparin drip; hold Eliquis. - Will consult interventional radiology, Dr. Castro in AM - Hypercoagulable workup ordered. Patient unsure about family history of clots 2. Dropping H&H, likely acute blood loss anemia -Baseline 14-16, noted to be 10 on this admission -Patient reports bright red blood per rectum since discharged on Eliquis, now resolved -denies prior hx of bleeds. Trend H&H q6h -stool for occult blood ordered DVT prophylaxis: heparin drip DISPOSITION: admit to Hospital, consult Dr. Castro in am. Trend H&H. Home Medications Scheduled PRN Oxycodone HCl/Acetaminophen (Oxycodone-Acetaminophen 5-325) 1 Each Tablet, 1 TAB PO TID PRN for PAIN, (Reported) Allergies Coded Allergies: No Known Drug Allergies (Verified Allergy, Unknown, 02/03/20) A-FIB/CHADSVASC A-FIB History Current/History of A-Fib/PAF?: No Vital Signs Vital Signs Date Time Temp Pulse Resp B/P (MAP) Pulse Ox O2 Delivery O2 Flow Rate FiO2 02/09/20 06:57 99.3 100 20 140/80 (100) 96 Room Air Laboratory Data Labs 24H Laboratory Tests 2 02/09/20 04:18: Immature Granulocyte % (Auto) 0.5, Neutrophils (%) (Auto) 65.0, Lymphocytes (%) (Auto) 15.7L, Monocytes (%) (Auto) 15.6H, Eosinophils (%) (Auto) 2.7, Basophils (%) (Auto) 0.5, Neutrophils # (Auto) 7.1, Lymphocytes # (Auto) 1.7, Monocytes # (Auto) 1.7H, Eosinophils # (Auto) 0.3, Basophils # (Auto) 0.1, Nucleated Red Blood Cells % (auto) 0.0, Erythrocyte Sedimentation Rate 54H, Prothrombin Time 17.9H, Prothromb Time International Ratio 1.50, Activated Partial Thromboplast Time 35.8, Anion Gap 6L, Glomerular Filtration Rate > 60.0, Calcium Level 8.2L, C-Reactive Protein, Quantitative 12.20H CBC/BMP Laboratory Tests 02/09/20 04:18 Plan / VTE VTE Prophylaxis Ordered?: Yes GME ATTESTATION GME ATTESTATION My faculty preceptor for this patient encounter was physically present during the encounter and was fully available. All aspects of the patient interview, examination, medical decision making process, and medical care plan development were reviewed and approved by the faculty preceptor. The faculty preceptor is aware and concurs with the plan as stated in the body of this note and will attest to such by his/her cosignature. ATTENDING NOTE I, Tj Rand, have independently examined this patient and performed my own physical exam, as well as reviewed the documentation and edited where necessary. I have discussed in detail with the resident / student the findings and plan of treatment as documented by the resident / student and edited their note. I agree with their findings and treatment plan and have edited their documentation. I will continue to follow the patient during this hospital stay. BELLA JENKINS DO Feb 09, 2020 07:22 TJ RAND MD Feb 10, 2020 01:56
[2020-02-09 07:45] VITALS: BP 172/86
[2020-02-09] MEDS ORDERED: MORPHINE 2 MG/ML 1ML VIAL (J2270) As Ordered ONE (07:53)
[2020-02-09] MEDS ORDERED: MORPHINE 2 MG/ML 1ML VIAL (J2270) IV PRN ×2 (08:00→11:00)
[2020-02-09] MEDS ORDERED: PANTOPRAZOLE 40MG VIAL (C9113 PER 1) IV SCH (09:00)
[2020-02-09] MEDS ORDERED: HEPARIN DRIP 25,000 UNITS in IV 1 EA IV SCH (09:00)
[2020-02-09] MEDS ORDERED: MORPHINE 4 MG/ML 1ML VIAL/SYRINGE (J2270) As Ordered ONE (10:07)
[2020-02-09] MEDS ORDERED: MORPHINE 4 MG/ML 1ML VIAL/SYRINGE (J2270) IV ONE (10:15)
[2020-02-09 12:00] VITALS: BP 165/90
--- NOTE | 2020-02-09 13:12 | IPNPDOC ---
Text Note Date of Service The patient was seen on 02/09/20. NOTE Subjective: -Reporting significant 8/10 pain in LLE General exam: A&Ox3 HEENT: NCAT, EOMI, neck supple, moist mucous membranes Cardiac: RRR, normal S1 & S2, no murmurs Respiratory: CTAB, no w/r/r, speaking full sentences without accessory muscle use Abdomen: soft, NT, ND, normoactive bowel sounds Extremity: 2+ radial pulses, left lower extremity w/ severe swelling with renu thema, warmth, tense compared to the right from the knee down with pain on palpation. Thready DP pulse on left Skin: [place], warm, dry, no visible rash or ulcers Msk: strength 5/5 x4, normal tone, LLE exam limited by pain Neuro: normal speech, no focal deficits Psych: Normal mood and affect LABORATORY DATA: WBC 10.9 Hgb 10.7 Platelets 211 na 136 K 3.9 Cr 0.65 INR 1.5 ASSESSMENT AND PLAN: Morbidly obese 44-year-old man recently diagnosed with left lower extremity DVT and underwent thrombectomy 02/03/2020 discharged on a eliquis 10 BID who now returned with worsening leg swelling and pain, found to have an occlusive DVT in the same region. 1. LLE occlusive DVT - s/p thrombectomy [address] Castro, will continue reaching out to her this AM - reports taking Eliquis as prescribed, quit smoking, walked more & used compression stockings since hospital discharge - Doppler on this admission: "Completely occlusive left deep venous thrombosis from the left common femoral vein through the popliteal vein and involving the saphenofemoral junction." - Continue heparin drip; continue holding Eliquis. - Hypercoagulable workup ordered at admission--> not sure its utility in the setting of an acute clot. Patient unsure about family history of clots. Will need hematology referral at discharge. -has significant LLE pain: norco 4/325 Q4H PRN for mild to moderate pain, morphine [id number] for moderate to severe pain. -Spoke with Dr. Higuera, who recommended transfer [facility] for vascular surgery evaluation, transfer effort ongoing, waiting to speak with the vascular surgeon 2.Acute anemia: with declining H&H, likely acute blood loss anemia -Baseline 14-16, noted to be 10 on this admission -Patient reports bright red blood per rectum since discharged on Eliquis, now resolved -denies prior hx of bleeds. continue trending H&H q6h while on heparin gtt -Place him on protonix IV BID for GI ppx -may require GI consult if H/H drops DVT prophylaxis: heparin drip DISPOSITION:Pending transfer for vascular surgery services VS,Jasson, I+O VS, Jasson, I+O Laboratory Tests 02/09/20 04:18 Vital Signs Date Time Temp Pulse Resp B/P (MAP) Pulse Ox O2 Delivery O2 Flow Rate FiO2 02/09/20 08:03 17 02/09/20 07:45 98.2 97 172/86 (114) 93 Room Air ORLANDO ARIZMENDI MD Feb 09, 2020 08:58
[2020-02-09 14:28] LABS: HEMATOCRIT 32.3 % (42.0-52.0); HEMOGLOBIN 10.8 g/dl (13.5-17.5)
--- NOTE | 2020-02-09 15:17 | DS.PDOC ---
Discharge Summary General Date of Admission Feb 09, 2020 at 06:34 Date of Discharge 02/09/2020 Attending Physician: ORLANDO ARIZMENDI MD Discharge Summary PROCEDURES PERFORMED DURING STAY: None ADMITTING DIAGNOSES: 1. Occlusive LLE DVT DISCHARGE DIAGNOSES: 1. Occlusive LLE DVT 2. Morbid obesity 3. Prediabetes COMPLICATIONS/CHIEF COMPLAINT: Deep Vein Thrombosis. HISTORY OF PRESENT ILLNESS: 44-year-old gentleman recently hospitalized February 02 through February 05 for a left lower extremity DVT s/p thrombectomy with Dr. Castro in IR who returned to the ED with worsening LLE edema and increasing in LLE pain. He was discharged on eliquis 10 BID which he reports 100% compliance, also quit smoking since his discharge 3 days ago and has increased ambulation and use compression stockings. He now returned reporting increased swelling and pain of the left lower extremity since the day before presentation without any inciting factors, similar to his initial episode couple of days ago on the prior admission. He otherwise denies any fever, shortness of breath, chest pain, lightheadedness or any other swelling. HOSPITAL COURSE: In the ED, he was noted to have completely occlusive left DVT from the left common femoral vein through the popliteal vein and involving the saphenofemoral junction on LE doppler US. Of note, he was also noted to have a hemoglobin of 10 on this visit, with his baseline being 14-1 and did corroborate some bright red blood per rectum, leaking at rest, and with bowel movements. He states this ultimately resolved 2 days prior to presentation and he has not noted any more hematochezia or melena or any other blood loss. At presentation, he was asymptomatic and denied any prior history of bleeds. On admission, his pain worsened and his swelling worsened to the point where his leg felt tense. His left leg did remain warm, with a thready DP pulse though the pain got much worse. I called Dr. Higuera in IR who recommended transfer to a center with vascular surgery services as she reported that he had an absent IVC with Azygos and hemiazygous drainage via collaterals and that his clot was extensive. After discussing it with him, he was initially apprehensive about transfer to [facility] in [place], [place] as it is far from his family, he eventually agreed to the transfer after understanding that he required surgical interv ention that [facility] is unable to offer at this time as we have vascular surgery coverage at this time. DISCHARGE MEDICATIONS: Please see below. ALLERGIES: Please see below. PHYSICAL EXAMINATION ON DISCHARGE: General exam: A&Ox3 HEENT: NCAT, EOMI, neck supple, moist mucous membranes Cardiac: RRR, normal S1 & S2, no murmurs Respiratory: CTAB, no w/r/r, speaking full sentences without accessory muscle use Abdomen: soft, NT, ND, normoactive bowel sounds Extremity: 2+ radial pulses, left lower extremity w/ severe swelling with erythema, warmth, tense compared to the right from the knee down with pain on palpation. Thready DP pulse on left Skin: [place], warm, dry, no visible rash or ulcers Msk: strength 5/5 x4, normal tone, LLE exam limited by pain Neuro: normal speech, no focal deficits Psych: Normal mood and affect LABORATORY DATA: Please see below. IMAGING: Duplex, Ext,LOWER veins,unilat LEFT Left deep veins: Occlusive thrombus within the left common femoral, femoral, and popliteal veins. Absent Doppler waveforms. Absent compressibility and/or augmentation response. Left superficial veins: Occlusive thrombus at the left saphenofemoral junction. Soft tissues: Generalized soft tissue swelling. IMPRESSION: Completely occlusive left deep venous thrombosis from the left common femoral vein through the popliteal vein and involving the saphenofemoral junction. PROGNOSIS: Good ACTIVITY: As tolerated DIET: NPO for possible surgical intervention DISCHARGE PLAN: Transfer to [facility] DISPOSITION: . DISCHARGE INSTRUCTIONS: 1. Transfer to [facility] TO FOLLOWUP ON ON OUTPATIENT: 1. Extensive LLE DVT 2. Hemotology referral for hypercoaguability work up DISCHARGE CONDITION: Stable. TIME SPENT ON DISCHARGE: 34 minutes. Vital Signs/I&Os Vital Signs Date Time Temp Pulse Resp B/P (MAP) Pulse Ox O2 Delivery O2 Flow Rate FiO2 02/09/20 13:06 17 02/09/20 12:00 98.5 92 165/90 (115) 95 Room Air Laboratory Data Labs 24H Laboratory Tests 2 02/09/20 04:18: Immature Granulocyte % (Auto) 0.5, Neutrophils (%) (Auto) 65.0, Lymphocytes (%) (Auto) 15.7L, Monocytes (%) (Auto) 15.6H, Eosinophils (%) (Auto) 2.7, Basophils (%) (Auto) 0.5, Neutrophils # (Auto) 7.1, Lymphocytes # (Auto) 1.7, Monocytes # (Auto) 1.7H, Eosinophils # (Auto) 0.3, Basophils # (Auto) 0.1, Nucleated Red Blood Cells % (auto) 0.0, Erythrocyte Sedimentation Rate 54H, Prothrombin Time 17.9H, Prothromb Time International Ratio 1.50, Activated Partial Thromboplast Time 35.8, Anion Gap 6L, Glomerular Filtration Rate > 60.0, Calcium Level 8.2L, C-Reactive Protein, Quantitative 12.20H 02/09/20 07:17: Activated Partial Thromboplast Time 35.2 CBC/BMP Laboratory Tests 02/09/20 04:18 Discharge Medications Scheduled Apixaban (Eliquis) 5 Mg Tablet, 10 MG PO BID, (Reported) START 5MG BID ON 02/13/20 Scheduled PRN Oxycodone HCl/Acetaminophen (Oxycodone-Acetaminophen 5-325) 1 Each Tablet, 1 TAB PO TID PRN for PAIN, (Reported) Miscellaneous Medications [Comments] , (Reported) PT TOOK AN EXTRA 5MG ELIQUIS TABLET AT 0200 ON 02/09/20 Allergies Coded Allergies: No Known Drug Allergies (Verified Allergy, Unknown, 02/03/20) ORLANDO ARIZMENDI MD Feb 09, 2020 13:29
[2020-02-09 16:00] VITALS: BP 172/93
[2020-02-11 00:07] LABS: CARDIOLIPIN IGA ANTIBODY <9 APL U/mL (0-11); CARDIOLIPIN IGG ANTIBODY 12 GPL U/mL (0-14); CARDIOLIPIN IGM ANTIBODY <9 MPL U/mL (0-12)
[2020-02-11 08:06] LABS: ANTI THROMBIN 3 ANTIGEN IMMUNO 59 % (72-124); ANTI THROMBIN 3 FUNCT ACTIVITY 110 % (75-135); PROTEIN C ANTIGEN 65 % (60-150); PROTEIN S ANTIGEN FREE 135 % (57-157); PROTEIN S ANTIGEN TOTAL 88 % (60-150)
== END 2020-02-09 17:32 | disposition short-term general hospital (02) | DRG 197 ==
LOC: M ED 03:55 → M ED INP 06:34 → ENRESERV 06:43 → M PCU 07:41
PROVIDERS: ADMIT Internal Medicine; ATTEND Internal Medicine
DX: I82.412 Acute embolism and thrombosis of left femoral vein (principal); I82.432 Acute embolism and thrombosis of left popliteal vein; E66.01 Morbid (severe) obesity due to excess calories; D62 Acute posthemorrhagic anemia; R73.03 Prediabetes; F17.200 Nicotine dependence, unspecified, uncomplicated; Z87.891 Personal history of nicotine dependence; Z79.891 Long term (current) use of opiate analgesic

== ENCOUNTER → 2020-02-17 | Outpatient (CLI) | payer OTHER ==
[~2020-02-17] MED LIST changes: +COMMENTS; +ISOVUE-370 76% 100ML VIAL As Ordered ONE
--- NOTE | 2020-02-17 12:50 | REP ---
CT ABDOMEN AND PELVIS WITH IV CONTRAST: TECHNIQUE: Axial contrast enhanced images from the lung bases to the pubic symphysis using 100 mL Isovue-370 intravenous contrast material with multiplanar reformations. Delayed venous phase images are performed to evaluate the inferior vena cava. The patient has a history of thrombectomy of the left common femoral and left iliac vein. There is a stent in the inferior vena cava extending into the left common iliac and external iliac veins. There appears to be contrast opacified venous blood within the stent, compatible with patency. Patent left external iliac vein is noted. There is a small filling defect in the left common femoral vein compatible with partial nonocclusive thrombus. This extends into the left profunda vein. The left superficial femoral vein central aspect is patent with no filling defect or thrombus. There is enlargement and apparent occlusive thrombus in the left internal iliac vein. Right iliac and visualized femoral veins appear patent. Prominent collateral venous structure is seen in the region of the renal ashlee bilaterally and also in the paravertebral regions. The abdominal aorta is normal in caliber with no aneurysm. There is minor atherosclerotic calcification. The visualized lung bases are clear. The liver, spleen, left adrenal, pancreas and kidneys appear unremarkable. Benign right adrenal calcification is noted. There is mild bilateral inguinal adenopathy. Two enlarged left inguinal lymph nodes have a maximum diameter of 1.4 cm in short axis dimension. Two mildly enlarged right inguinal lymph nodes have a maximum diameter of 1.3 cm in short axis dimension. There is incomplete fusion of the upper sacrum. IMPRESSION: Stent in the inferior vena cava and left common and external iliac veins appears patent. Non occlusive thrombus is seen in the left common femoral vein extending into the left profunda vein. There appears to be occlusive thrombus and enlargement of a left internal iliac vein. Mild bilateral inguinal adenopathy. Electronically Signed by Artem Renteria MD 02/17/2020 01:22 P
== END ==
LOC: M RAD 10:43
PROVIDERS: ATTEND Radiology Diagnostic Radiology
DX: I82.220 Acute embolism and thrombosis of inferior vena cava (principal)
CPT/HCPCS: 74178; Q9967

== ENCOUNTER → 2020-02-21 | Outpatient (POV) | payer OTHER ==
[~2020-02-21] MED LIST changes: -ISOVUE-370 76% 100ML VIAL As Ordered ONE
--- NOTE | 2020-02-22 19:40 | IRPN ---
[facility] IR Progress Note IR Progress Note DATE: February 21, 2020 Telemedicine follow up FOLLOW-UP: Patient with extensive left leg DVT, iliofemoral DVT and IVC occlusion status post [facility] Patient reports decreased swelling of left leg, states it's the same as the right leg now. Less pain. Patient continues on anti coagulation without bleeding. ON EXAMINATION: no video available on patient side. IMAGING: I personally reviewed the same day CT venogram. Left iliac, ilio caval and caval stents extending continuous to hepatic level IVC. No stent in right iliac vein. IMPRESSION: status post left iliocaval and caval reconstruction and stenting at [facility], patient is doing well with decreased left leg swelling. The right iliac vein however is jailed. Follow up with [facility]. We will obtain the records from [facility]. Follow up in IR clinic in 1 month for right leg evaluation. Thank you for this referral Allergies Coded Allergies: No Known Drug Allergies (Verified Allergy, Unknown, 02/03/20) ARNAUD MÁRQUEZ MD February 22, 2020 19:40
== END ==
LOC: M TMIRPOV 10:46
PROVIDERS: ATTEND Radiology Diagnostic Radiology
DX: I82.402 Acute embolism and thrombosis of unspecified deep veins of left lower extremity (principal); Z95.828 Presence of other vascular implants and grafts

== ENCOUNTER 2020-02-25 01:25 | Emergency (ER) | payer OTHER ==
[~2020-02-25] VITALS: Ht 177.8 cm; Wt 128.8 kg
[2020-02-25] MEDS ORDERED: IBUP80TA PO (01:35)
[2020-02-25] MEDS ORDERED: TRAM50TA2 PO (01:35)
[2020-02-25] MEDS ORDERED: CLOP75TA2 PO (01:35)
[2020-02-25] MEDS ORDERED: CYCL-707 PO (01:35)
[2020-02-25] MEDS ORDERED: ELIQ5TAB PO (01:35)
--- NOTE | 2020-02-25 03:04 | REPVR ---
PROCEDURE INFORMATION: Exam: US Duplex Left Lower Extremity Veins, Limited Exam date and time: 02/25/2020 2:35 AM Age: 44 years old Clinical indication: Pain; Leg, lower; Left; Additional info: Left foot swelling, recent dvt with stenting TECHNIQUE: Imaging protocol: Real-time Duplex ultrasound of the Left Lower Extremity with 2-D wood scale, color Doppler flow and spectral waveform analysis with image documentation. Limited exam focused on the left lower extremity veins. COMPARISON: US Duplex, Ext,LOWER veins,unilat LEFT 2020-02-09 04:29 FINDINGS: Left deep veins: Nonocclusive thrombus in the left common femoral vein, likely chronic corresponding to the thrombus on the prior ultrasound. Left superficial veins: Unremarkable. Saphenofemoral junction is patent without thrombus. Soft tissues: Unremarkable. IMPRESSION: Nonocclusive thrombus in the left common femoral vein, likely chronic corresponding to the thrombus on the prior ultrasound. Electronically signed by: Colten Bernard On 02/25/2020 03:03:34 AM
[2020-02-25 03:16] VITALS: BP 161/76
== END 2020-02-25 03:45 | disposition home or self-care (01) ==
LOC: M ED 01:25
DX: I82.512 Chronic embolism and thrombosis of left femoral vein (principal); M79.89 Other specified soft tissue disorders; R20.0 Anesthesia of skin; R73.03 Prediabetes; F17.210 Nicotine dependence, cigarettes, uncomplicated; Z79.01 Long term (current) use of anticoagulants; Z79.02 Long term (current) use of antithrombotics/antiplatelets

== ENCOUNTER → 2020-08-10 | Outpatient (REF) | payer MEDICAID, OTHER ==
[~2020-08-10] MED LIST changes: -ASPI81TA85 PO; +ASPI81TA86 PO; +CLOP75TA2 PO; +CYCL-707 PO; +IBUP80TA PO; +TRAM50TA2 PO
[2020-08-10 12:58] LABS: BASO # 0.1 10^3/uL (0.0-0.2); EOS # 0.3 10^3/uL (0.0-0.5); EOS % 4.2 % (0.0-3.0); HEMATOCRIT 49.3 % (42.0-52.0); HEMOGLOBIN 15.9 g/dl (13.5-17.5); LYMPH # 2.2 10^3/uL (1.5-5.0); LYMPH % 37.6 % (24.0-44.0); MEAN CORPUSCULAR HEMOGLOBIN 28.7 pg (27.0-33.0); MEAN CORPUSCULAR HGB CONC 32.3 g/dl (32.0-36.5); MONO # 0.9 10^3/uL (0.0-0.8); MONO % 14.4 % (0.0-5.0); NEUTROPHILS # 2.5 10^3/uL (1.5-8.5); NEUTROPHILS % 42.6 % (36.0-66.0); PLATELET COUNT, AUTOMATED 155 10^3/uL (150-450); RED BLOOD COUNT 5.54 10^6/uL (4.30-6.10); WHITE BLOOD COUNT 5.9 10^3/uL (4.0-10.0)
[2020-08-10 13:27] LABS: HEMOGLOBIN A1c 6.3 %
[2020-08-10 13:42] LABS: ALBUMIN 3.7 GM/DL (3.2-5.2); ALT/SGPT 54 U/L (12-78); BILIRUBIN,TOTAL 0.8 MG/DL (0.2-1.0); BLOOD UREA NITROGEN 18 MG/DL (7-18); CALCIUM LEVEL 8.7 MG/DL (8.5-10.1); CARBON DIOXIDE LEVEL 28 MEQ/L (21-32); CHLORIDE LEVEL 106 MEQ/L (98-107); CHOLESTEROL LEVEL 189 MG/DL (<200); CREATININE FOR GFR 0.86 MG/DL (0.70-1.30); GLOMERULAR FILTRATION RATE > 60.0 (>60); GLUCOSE, FASTING 129 MG/DL (70-100); HDL CHOLESTEROL 36 MG/DL (>40); LDL CHOLESTEROL 113 MG/DL (<100); NON-HDL-C 153 MG/DL; POTASSIUM SERUM 4.2 MEQ/L (3.5-5.1); SODIUM LEVEL 137 MEQ/L (136-145); TOTAL 25(OH) VITAMIN D 22.2 NG/ML (30.0-100.0); TOTAL PROTEIN 7.8 GM/DL (6.4-8.2); TRIGLYCERIDES LEVEL 202 MG/DL (<150)
== END ==
LOC: M LAB REF 11:36
PROVIDERS: ATTEND Nurse Practitioner Family
DX: E55.9 Vitamin D deficiency, unspecified (principal); R73.03 Prediabetes; Z13.9 Encounter for screening, unspecified; E66.01 Morbid (severe) obesity due to excess calories; F17.200 Nicotine dependence, unspecified, uncomplicated; I82.492 Acute embolism and thrombosis of other specified deep vein of left lower extremity

== ENCOUNTER 2020-11-27 13:11 | Inpatient (IN) | payer OTHER, MEDICAID ==
[~2020-11-27] VITALS: Ht 177.8 cm; Wt 121.3 kg
[2020-11-27 14:51] LABS: BASO # 0.1 10^3/uL (0.0-0.2); BASO % 1.3 % (0.0-1.0); EOS # 0.1 10^3/uL (0.0-0.5); EOS % 2.6 % (0.0-3.0); HEMATOCRIT 46.6 % (42.0-52.0); HEMOGLOBIN 16.5 g/dl (13.5-17.5); LYMPH # 1.6 10^3/uL (1.5-5.0); LYMPH % 29.4 % (24.0-44.0); MEAN CORPUSCULAR HEMOGLOBIN 30.5 pg (27.0-33.0); MEAN CORPUSCULAR HGB CONC 35.4 g/dl (32.0-36.5); MEAN CORPUSCULAR VOLUME 86.1 fl (80.0-96.0); MONO # 0.7 10^3/uL (0.0-0.8); MONO % 12.6 % (0.0-5.0); NEUTROPHILS # 2.9 10^3/uL (1.5-8.5); NEUTROPHILS % 53.9 % (36.0-66.0); PLATELET COUNT, AUTOMATED 180 10^3/uL (150-450); RED BLOOD COUNT 5.41 10^6/uL (4.30-6.10); WHITE BLOOD COUNT 5.4 10^3/uL (4.0-10.0)
--- NOTE | 2020-11-27 14:52 | REP ---
INDICATION: cough. COMPARISON: None. TECHNIQUE: SINGLE PORTABLE AP VIEW OF THE CHEST WAS PERFORMED. FINDINGS: THERE IS NO ACUTE INFILTRATE OR PULMONARY EDEMA. LUNGS ARE CLEAR. HEART IS NOT SIGNIFICANTLY ENLARGED. MEDIASTINAL SILHOUETTE IS UNREMARKABLE. THE VISUALIZED OSSEOUS STRUCTURES ARE INTACT.There is an old healed fracture of the right clavicle. IMPRESSION: NO ACUTE PULMONARY DISEASE. <Electronically signed by Artem Renteria > 11/27/20 [id number]
[2020-11-27 14:56] LABS: ALBUMIN 3.3 GM/DL (3.2-5.2); BILIRUBIN,DIRECT 0.2 MG/DL (0.0-0.2); BILIRUBIN,TOTAL 1.1 MG/DL (0.2-1.0); CALCIUM LEVEL 8.3 MG/DL (8.5-10.1); CARBON DIOXIDE LEVEL 24 MEQ/L (21-32); CHLORIDE LEVEL 89 MEQ/L (98-107); CK-MB VALUE MASS 2.9 NG/ML (<3.6); CPK CREATINE PHOSPHOKINASE 171 U/L (39-308); CREATININE FOR GFR 0.96 MG/DL (0.70-1.30); FREE T4 1.02 NG/DL (0.76-1.46); GLOMERULAR FILTRATION RATE > 60.0 (>60); LIPASE 144 U/L (73-393); POTASSIUM SERUM 4.2 MEQ/L (3.5-5.1); SODIUM LEVEL 127 MEQ/L (136-145); TROPONIN I < 0.02 NG/ML (< 0.10)
[2020-11-27] MEDS ORDERED: ISOVUE-370 76% 100ML VIAL As Ordered ONE (15:58)
[2020-11-27] MEDS ORDERED: HumuLIN R (REGULAR) INSULIN (NovoLIN R) **100U/ML** PER UNIT IV ONE (16:00)
[2020-11-27 16:18] LABS: ALT/SGPT 74 IU/L (0-32)
[2020-11-27 16:20] LABS: GLUCOSE, FASTING 769 MG/DL (70-100)
[2020-11-27 16:23] LABS: BLOOD UREA NITROGEN 20 MG/DL (7-18); TOTAL PROTEIN 7.4 GM/DL (6.4-8.2)
--- NOTE | 2020-11-27 17:10 | REP ---
INDICATION: abd pain, vomiting. COMPARISON: Comparison CT study February 17, 2020.. TECHNIQUE: Helical scanning was acquired and 4 mm axial images are re-formatted. Coronal and sagittal MPR images were generated and reviewed. The contrast enhancement dose is 100 mL of intravenous Isovue 370. FINDINGS: Preliminary digital mortgage loan assistant radiograph demonstrates an unremarkable bowel gas pattern. The lung bases are clear on axial CT images. There is no evidence of pleural effusion or upper abdominal ascites. There is moderate diffuse fatty infiltration of the liver. This is more pronounced than on the prior study. There are areas of fat sparing in the left lobe and adjacent to the gallbladder. No abnormality is noted the gallbladder or the pancreas. The spleen is normal in size homogeneous in texture. Normal adrenal glands are seen. The kidneys enhance symmetrically and are morphologically intact. There is a small focus of cortical scarring the upper pole the right kidney unchanged. There is a left external iliac inferior vena caval stent in place between the intrahepatic segment of the IVC and the left external iliac vein as before. Venous return from the legs is not opacified at the time of scan acquisition but neither common femoral vein appears dilated or irregular. There are however retroperitoneal collaterals about the renal veins bilaterally and these appear to empty into the azygos and michel-azygous veins which are hypertrophied extending into the chest. This is unchanged. Small and large bowel loops are normal in the upper abdomen. Pelvic CT images demonstrate a normal appendix. Seminal vesicles, prostate and urinary bladder are unremarkable. No abdominal wall defect is seen. 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 This is unchanged. 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 There is calcified central disc protrusion at T12-L1 unchanged. IMPRESSION: No acute intra-abnormality. Moderate diffuse fatty infiltration of the liver. A cave 0 left iliac stent remains in place unchanged from the prior study. There are retroperitoneal collaterals which appear to communicate with hypertrophied azygous and michel-azygous veins unchanged. <Electronically signed by Jaswant Guido > 11/27/20 [id number]
[2020-11-27] MEDS ORDERED: ACETAMINOPHEN TAB 650MG DOSE (2X325MG) PO PRN (17:45)
[2020-11-27] MEDS ORDERED: HumuLIN R (REGULAR) INSULIN (NovoLIN R) **100U/ML** PER UNIT IV SCH (17:45)
[2020-11-27] MEDS ORDERED: LABETALOL 100MG/20ML VIAL IV STA (17:50)
[2020-11-27] MEDS ORDERED: KCL 20MEQ in NS 1000ML 1,000 ML IV SCH (18:00)
[2020-11-27] MEDS ORDERED: ONDANSETRON 4MG/2ML VIAL IV PRN (18:00)
--- NOTE | 2020-11-27 18:03 | HPEPDOC ---
General Date of Admission 11/27/20 Date of Service: Nov 27, 2020 Chief Complaint The patient is a 45-year-old male admitted with a reason for visit of Vomiting. Source: Patient Exam Limitations: No limitations Timing/Duration: Week(s) Severity: Moderate History of Present Illness Patient is 45 years old male with past medical history of prediabetes, DVT, obesity presented hospital with nausea, vomiting. Patient stated that for past few months he has been very thirsty, nauseated. Also he noticed polyuria. In ED patient was found to have no leukocytosis, sodium level 127, glucose level 769. Vital signs pertinent for systolic blood pressure 190. CT abdomen and pelvis negative for acute intra-abdominal process. Home Medications Scheduled Apixaban (Eliquis) 5 Mg Tablet, 5 MG PO BID, (Reported) Clopidogrel Bisulfate (Clopidogrel) 75 Mg Tablet, 75 MG PO QHS, (Reported) Allergies Coded Allergies: No Known Drug Allergies (Verified Allergy, Unknown, 02/03/20) Past Medical History Medical History Prediabetes Tobacco use disorder History of left lower extremity DVT Morbid obesity Surgical History Left leg DVT thrombectomy Family History Cardiac disease Hypertension Dyslipidemia Social History * Smoker: current smoker Alcohol: Denies Drugs: cocaine, marijuana A-FIB/CHADSVASC A-FIB History Current/History of A-Fib/PAF?: No Current PO Anticoag Therapy: No Review of Systems Constitutional: Reports: Fatigue; Denies: Chills, Fever Eyes: Denies: Pain, Vision change ENT: Denies: Head Aches Skin: Denies: Rash, Lesions Pulmonary: Denies: Dyspnea Cardiovascular: Denies: Chest Pain Gastrointestinal: Reports: Nausea, Vomiting Genitourinary: Reports: Dysuria, Frequency Hematologic: Denies: Bruising Endocrine: Denies: Polydipsia Musculoskeletal: Denies: Neck Pain Neurological: Denies: Weakness Psych: Reports: Mood Normal Physical Examination General Exam: Positive: Alert ENT Exam: Positive: Atraumatic Neck Exam: Positive: Supple; Negative: JVD Chest Exam: Positive: Diminished Heart Exam: Positive: Rate Normal Telemetry: Positive: No significant arrhythmia Abdomen Exam: Positive: Normal bowel sounds Extremity Exam: Negative: Clubbing Skin Exam: Positive: Nl turgor and temperature Neuro Exam: Positive: Normal Gait, Strength at 5/5 X4 ext Psych Exam: Positive: Mental status NL Vital Signs Vital Signs Date Time Temp Pulse Resp B/P (MAP) Pulse Ox O2 Delivery O2 Flow Rate FiO2 11/27/20 16:52 11/27/20 13:11 98.6 103 20 95 Room Air Laboratory Data Labs 24H Laboratory Tests 2 11/27/20 13:59: 11/27/20 14:00: Immature Granulocyte % (Auto) 0.2, Neutrophils (%) (Auto) 53.9, Lymphocytes (%) (Auto) 29.4, Monocytes (%) (Auto) 12.6H, Eosinophils (%) (Auto) 2.6, Basophils (%) (Auto) 1.3H, Neutrophils # (Auto) 2.9, Lymphocytes # (Auto) 1.6, Monocytes # (Auto) 0.7, Eosinophils # (Auto) 0.1, Basophils # (Auto) 0.1, Nucleated Red Blood Cells % (auto) 0.0, Urine Color STRAW, Urine Appearance CLEAR, Urine pH 5.0, Urine Specific [place] 1.030, Urine Protein NEGATIVE, Urine Glucose (UA) 3+H, Urine Ketones 1+H, Urine Blood 2+H, Urine Nitrite NEGATIVE, Urine Bilirubin NEGATIVE, Urine Urobilinogen 0.2, Urine Leukocyte Esterase 2+H, Urine WBC (Auto) 28H, Urine RBC (Auto) 18H, Urine Hyaline Casts (Auto) 0, Urine Bacteria (Auto) NEGATIVE, Urine Squamous Epithelial Cells 0, Urine Mucus (Auto) SMALL, Urine Sperm (Auto) , Anion Gap 14, Glomerular Filtration Rate > 60.0, Calcium Level 8 .3L, Total Bilirubin 1.1H, Direct Bilirubin 0.2, Aspartate Amino Transf (AST/SGOT) 32, Alanine Aminotransferase (ALT/SGPT) 74H, Alkaline Phosphatase 167H, Total Creatine Kinase 171, Creatine Kinase MB 2.9, Creatine Kinase MB Relative Index 1.70, Troponin I < 0.02, Total Protein 7.4, Albumin 3.3, Alb umin/Globulin Ratio 0.8, Lipase 144, Thyroid Stimulating Hormone (TSH) 2.020, Free Thyroxine 1.02 11/27/20 14:04: SARS Antigen (LFIA) NEGATIVE CBC/BMP Laboratory Tests 11/27/20 14:00 Microbiology Microbiology 11/27/20 Respiratory Virus Panel (PCR) ([facility]), Received Pending 11/27/20 Urine Culture, Received Pending Assessment/Plan Patient is 45 years old male with past medical history of prediabetes, DVT, obesity presented hospital with nausea, vomiting. Patient stated that for past few months he has been very thirsty, nauseated. Also he noticed polyuria. In ED patient was found to have no leukocytosis, sodium level 127, glucose level 769. Vital signs pertinent for systolic blood pressure 190. CT abdomen and pelvis negative for acute intra-abdominal process. Problems (1) Hyperosmolar hyperglycemic state (HHS) Status: Acute Problem Text: Most like is secondary to undiagnosed type 2 diabetes Insulin drip IV potassium supplementation BMP every 4 hours Nothing by mouth except meds (2) Vomiting Status: Acute Problem Text: Zofran IV (3) DVT (deep venous thrombosis) Status: Acute Problem Text: Continue Plavix and Eliquis (4) Hypertensive urgency Status: Acute Problem Text: Lisinopril 20 mg daily Labetalol IV once Plan / VTE VTE Prophylaxis Ordered?: Yes ALFREDA MESA DO Nov 27, 2020 18:03
[2020-11-27 18:23] LABS: HEMOGLOBIN A1c 13.8 %
[2020-11-27 18:30] LABS: ACETONE/KETONE 27.85 MG/DL (<2.81)
[2020-11-27] MEDS: INSULIN REGULAR IN 0.9 % NACL 100 UNIT in IV 1 EA IV SCH ×4 (18:40→22:50)
--- NOTE | 2020-11-27 20:16 | ECGEPIP ---
[facility] - ED Test Date: 2020-11-27 Pat Name: MICHELE LITTLE Department: Room: - Gender: Male Validation Manager: alyssa : 1975 Requested By: EZEQUIEL Herrmann Order Number: [id number] Reading MD: Rashmi Gutierrez Measurements Intervals [place] Rate: 99 P: 58 ID: [id number] QRS: 6 QRSD: 84 T: 38 QT: 350 QTc: 449 Interpretive Statements SINUS RHYTHM baseline artifact may affect interpretation SIMILAR 02/03/20 Electronically Signed on 11-27-2020 20:15:48 EST by Rashmi Gutierrez
[2020-11-27] MEDS: CLOPIDOGREL 75 MG TAB PO SCH (21:00)
[2020-11-27] MEDS: APIXABAN 5 MG TAB (ELIQUIS) PO SCH (21:00)
[2020-11-28] VITALS (8 sets, daily range): BP systolic 123–140; BP diastolic 63–91
[2020-11-28] MEDS: INSULIN IV RATE CHANGE DOCUMENTATION ML/HR XX SCH ×5 (00:09→10:30)
[2020-11-28] MEDS ORDERED: KCL 20MEQ IN D5/0.45NS 1000ML 1,000 ML IV SCH (00:30)
[2020-11-28] MEDS ORDERED: IBUPROFEN 400MG TAB PO ONE (01:00)
[2020-11-28 01:19] LABS: BLOOD UREA NITROGEN 17 MG/DL (7-18); CALCIUM LEVEL 7.8 MG/DL (8.5-10.1); CARBON DIOXIDE LEVEL 28 MEQ/L (21-32); CHLORIDE LEVEL 102 MEQ/L (98-107); CREATININE FOR GFR 0.74 MG/DL (0.70-1.30); GLOMERULAR FILTRATION RATE > 60.0 (>60); GLUCOSE, FASTING 187 MG/DL (70-100); POTASSIUM SERUM 3.2 MEQ/L (3.5-5.1); SODIUM LEVEL 137 MEQ/L (136-145)
[2020-11-28] MEDS ORDERED: POTASSIUM CHLORIDE 10% LIQ 20 MEQ/15 ML UDC PO ONE (01:45)
[2020-11-28] MEDS: KCL 40MEQ IN D5/0.45NS 1000ML 1,000 ML IV SCH ×2 (01:58→07:40)
[2020-11-28 03:00] LABS: BLOOD UREA NITROGEN 18 MG/DL (7-18); CALCIUM LEVEL 7.7 MG/DL (8.5-10.1); CARBON DIOXIDE LEVEL 27 MEQ/L (21-32); CHLORIDE LEVEL 101 MEQ/L (98-107); CREATININE FOR GFR 0.76 MG/DL (0.70-1.30); GLOMERULAR FILTRATION RATE > 60.0 (>60); GLUCOSE, FASTING 242 MG/DL (70-100); MAGNESIUM LEVEL 1.8 MG/DL (1.8-2.4); PHOSPHORUS LEVEL 3.9 MG/DL (2.5-4.9); SODIUM LEVEL 137 MEQ/L (136-145)
[2020-11-28 06:06] LABS: HEMATOCRIT 43.7 % (42.0-52.0); HEMOGLOBIN 15.2 g/dl (13.5-17.5); MEAN CORPUSCULAR HGB CONC 34.8 g/dl (32.0-36.5); MEAN CORPUSCULAR VOLUME 86.2 fl (80.0-96.0); PLATELET COUNT, AUTOMATED 115 10^3/uL (150-450); RED BLOOD COUNT 5.07 10^6/uL (4.30-6.10); WHITE BLOOD COUNT 4.2 10^3/uL (4.0-10.0)
[2020-11-28 06:28] LABS: ALBUMIN 2.9 GM/DL (3.2-5.2); ALT/SGPT 63 U/L (12-78); BILIRUBIN,TOTAL 0.8 MG/DL (0.2-1.0); BLOOD UREA NITROGEN 18 MG/DL (7-18); CALCIUM LEVEL 7.6 MG/DL (8.5-10.1); CARBON DIOXIDE LEVEL 29 MEQ/L (21-32); CHLORIDE LEVEL 102 MEQ/L (98-107); CREATININE FOR GFR 0.76 MG/DL (0.70-1.30); GLOMERULAR FILTRATION RATE > 60.0 (>60); GLUCOSE, FASTING 269 MG/DL (70-100); MAGNESIUM LEVEL 1.6 MG/DL (1.8-2.4); PHOSPHORUS LEVEL 3.1 MG/DL (2.5-4.9); POTASSIUM SERUM 3.7 MEQ/L (3.5-5.1); SODIUM LEVEL 136 MEQ/L (136-145); TOTAL PROTEIN 6.5 GM/DL (6.4-8.2)
[2020-11-28] MEDS ORDERED: LEVEMIR (INSULIN DETEMIR) 1 UNITS/0.01ML SC SCH ×4 (07:00→21:00)
[2020-11-28] MEDS: HumaLOG INSULIN (NovoLOG) PER UNIT SC SCH ×3 (07:30→18:11)
[2020-11-28] MEDS ORDERED: MAG SULF 1GM/100ML (MAG RUN) 1 GM in IV 1 EA IV ONE (08:00)
[2020-11-28] MEDS ORDERED: GLUCAGON INJ 1MG VIAL SC PRN (08:15)
[2020-11-28] MEDS ORDERED: GLUCOSE 4GM CHEW TABLET PO PRN (08:15)
[2020-11-28] MEDS ORDERED: DEXTROSE 50% 50 ML SYRINGE IV PRN (08:15)
[2020-11-28] MEDS: APIXABAN 5 MG TAB (ELIQUIS) PO SCH ×2 (09:29→20:23)
[2020-11-28] MEDS: INSULIN REGULAR IN 0.9 % NACL 100 UNIT in IV 1 EA IV SCH ×2 (09:37)
[2020-11-28 10:41] LABS: BLOOD UREA NITROGEN 17 MG/DL (7-18); CALCIUM LEVEL 8.1 MG/DL (8.5-10.1); CARBON DIOXIDE LEVEL 27 MEQ/L (21-32); CHLORIDE LEVEL 102 MEQ/L (98-107); CREATININE FOR GFR 0.78 MG/DL (0.70-1.30); GLOMERULAR FILTRATION RATE > 60.0 (>60); GLUCOSE, FASTING 239 MG/DL (70-100); PHOSPHORUS LEVEL 2.5 MG/DL (2.5-4.9); POTASSIUM SERUM 3.6 MEQ/L (3.5-5.1); SODIUM LEVEL 138 MEQ/L (136-145)
[2020-11-28] MEDS ORDERED: BLOOKIT21 XX (11:08)
[2020-11-28] MEDS ORDERED: GLUC1TES2 XX (11:08)
[2020-11-28] MEDS ORDERED: ALCOPAD25 TOP (11:08)
[2020-11-28] MEDS ORDERED: LANC30MI XX (11:08)
[2020-11-28] MEDS ORDERED: PEN1MIS21 SC (11:08)
[2020-11-28] MEDS ORDERED: LANTINJ4 SC (11:10)
[2020-11-28] MEDS ORDERED: METF-838 PO (11:10)
--- NOTE | 2020-11-28 11:17 | IPNPDOC ---
Text Note Date of Service The patient was seen on 11/28/20. NOTE Subjective: No any acute events overnight. Patient stated that he feels better, abdominal pain resolved, no nausea. Objective: GENERAL APPEARANCE: Obese male HEENT: no scleral icterus, no JVD, EOMI CARDIOVASCULAR: S1S2 LUNGS: Diminished lung sounds ABDOMEN: soft & not tender w palpitation MUSCULOSKELETAL: no cyanosis, no swelling INTEGUMENT: no generalized pallor NEUROLOGICAL: cranial nerve function from 2-12 intact intact, follows commands, speech not dysarthric Assessment/Plan Patient is 45 years old male with past medical history of prediabetes, DVT, ob esity presented hospital with nausea, vomiting. Patient stated that for past few months he has been very thirsty, nauseated. Also he noticed polyuria. In ED patient was found to have no leukocytosis, sodium level 127, glucose level 769. Vital signs pertinent for systolic blood pressure 190. CT abdomen and pelvis negative for acute intra-abdominal process. Problems (1) Hyperosmolar hyperglycemic state (HHS) Resolved Most like is secondary to undiagnosed type 2 diabetes Patient received Insulin drip and IV potassium supplementation (2) Vomiting Resolved. Patient was able to tolerate breakfast Zofran IV (3) DVT (deep venous thrombosis) Status: Acute Problem Text: Continue Plavix and Eliquis (4) Hypertensive urgency Lisinopril 20 mg daily Labetalol IV once Hypertension Patient has most likely undiagnosed hypertension Lisinopril 20 mg daily Type 2 diabetes Diabetes diet Detemir 25 units in the morning and 10 units in the evening Insulin sliding scale Diabetes poorly compensated, HbA1c 13 Patient will need close follow-up with primary care physician and graphic user interface designer Jasson BUNDY, I+O Jasson BUNDY I+O Laboratory Tests 11/27/20 14:00 11/28/20 00:43 11/28/20 02:29 11/28/20 05:42 11/28/20 09:52 Vital Signs Date Time Temp Pulse Resp B/P (MAP) Pulse Ox O2 Delivery O2 Flow Rate FiO2 11/28/20 09:29 140/91 11/28/20 07:47 96.6 88 18 94 Room Air 11/28/20 06:00 2.0 I&O- Last 24 Hours up to 6 AM 11/28/20 06:00 Intake Total 1525 ml Output Total 250 ml Balance 1275 ml ALFREDA MESA DO Nov 28, 2020 11:17
[2020-11-28] MEDS: CLOPIDOGREL 75 MG TAB PO SCH (20:23)
[2020-11-28] MEDS ORDERED: HumaLOG INSULIN (NovoLOG) PER UNIT SC SCH (21:00)
[2020-11-29 06:00] VITALS: BP 140/90
[2020-11-29 07:58] LABS: HEMATOCRIT 46.3 % (42.0-52.0); HEMOGLOBIN 15.5 g/dl (13.5-17.5); MEAN CORPUSCULAR HEMOGLOBIN 28.9 pg (27.0-33.0); MEAN CORPUSCULAR HGB CONC 33.5 g/dl (32.0-36.5); MEAN CORPUSCULAR VOLUME 86.2 fl (80.0-96.0); PLATELET COUNT, AUTOMATED 108 10^3/uL (150-450); RED BLOOD COUNT 5.37 10^6/uL (4.30-6.10); WHITE BLOOD COUNT 4.2 10^3/uL (4.0-10.0)
[2020-11-29 08:22] LABS: ALBUMIN 2.9 GM/DL (3.2-5.2); ALT/SGPT 70 U/L (12-78); BILIRUBIN,TOTAL 0.8 MG/DL (0.2-1.0); BLOOD UREA NITROGEN 11 MG/DL (7-18); CALCIUM LEVEL 7.9 MG/DL (8.5-10.1); CARBON DIOXIDE LEVEL 26 MEQ/L (21-32); CHLORIDE LEVEL 101 MEQ/L (98-107); CREATININE FOR GFR 0.72 MG/DL (0.70-1.30); GLOMERULAR FILTRATION RATE > 60.0 (>60); GLUCOSE, FASTING 316 MG/DL (70-100); MAGNESIUM LEVEL 1.7 MG/DL (1.8-2.4); SODIUM LEVEL 135 MEQ/L (136-145); TOTAL PROTEIN 6.6 GM/DL (6.4-8.2)
[2020-11-29] MEDS: APIXABAN 5 MG TAB (ELIQUIS) PO SCH (08:24)
[2020-11-29] MEDS: HumaLOG INSULIN (NovoLOG) PER UNIT SC SCH ×3 (08:25→17:40)
[2020-11-29 08:27] VITALS: BP 149/86
[2020-11-29] MEDS ORDERED: LEVEMIR (INSULIN DETEMIR) 1 UNITS/0.01ML SC SCH ×4 (09:00→18:45)
[2020-11-29] MEDS ORDERED: GLUC1TES2 XX (10:30)
[2020-11-29] MEDS ORDERED: PEN1MIS21 SC (10:30)
[2020-11-29] MEDS ORDERED: LANC30MI XX (10:30)
[2020-11-29] MEDS ORDERED: METF-838 PO (10:30)
[2020-11-29] MEDS ORDERED: BLOOKIT21 XX (10:30)
[2020-11-29] MEDS ORDERED: ALCOPAD25 TOP (10:30)
[2020-11-29] MEDS ORDERED: LANTINJ4 SC (10:30)
--- NOTE | 2020-11-29 10:52 | IPNPDOC ---
Text Note Date of Service The patient was seen on 11/29/20. NOTE Subjective: Patient stated that he feels better today, he has a good appetite, no nausea, no vomiting, no fever Objective: GENERAL APPEARANCE: Obese male HEENT: no scleral icterus, no JVD, EOMI CARDIOVASCULAR: S1S2 LUNGS: Diminished lung sounds ABDOMEN: soft & not tender w palpitation MUSCULOSKELETAL: no cyanosis, no swelling INTEGUMENT: no generalized pallor NEUROLOGICAL: cranial nerve function from 2-12 intact intact, follows commands, speech not dysarthric Assessment/Plan Patient is 45 years old male with past medical history of prediabetes, DVT, obesity presented hospital with nausea, vomiting. Patient stated that for past few months he has been very thirsty, nauseated. Also he noticed polyuria. In ED patient was found to have no leukocytosis, sodium level 127, glucose level 769. Vital signs pertinent for systolic blood pressure 190. CT abdomen and pelvis ne gative for acute intra-abdominal process. Problems (1) Hyperosmolar hyperglycemic state (HHS) Resolved Most like is secondary to undiagnosed type 2 diabetes Patient received Insulin drip and IV potassium supplementation (2) Vomiting Resolved. Patient was able to tolerate breakfast Zofran IV (3) DVT (deep venous thrombosis) Continue Plavix and Eliquis (4) Hypertensive urgency Lisinopril 20 mg daily Labetalol IV once Hypertension Patient has most likely undiagnosed hypertension Lisinopril 20 mg daily Type 2 diabetes Diabetes diet The glucose level not optimally controlled, I increased the level of Detemir 40 units in the morning and 20 units in the evening Insulin sliding scale Diabetes poorly compensated, HbA1c 13 Patient will need close follow-up with primary care physician and o phthalmologist Jasson BUNDY, I+O VSJasson I+O Laboratory Tests 11/29/20 07:38 Vital Signs Date Time Temp Pulse Resp B/P (MAP) Pulse Ox O2 Delivery O2 Flow Rate FiO2 11/29/20 08:27 149/86 11/29/20 06:00 96.9 71 0 97 11/28/20 15:30 Room Air 11/28/20 06:00 2.0 I&O- Last 24 Hours up to 6 AM 11/29/20 06:00 Intake Total 4458.0 ml Output Total 1655 ml Balance 2803.0 ml ALFREDA MESA DO Nov 29, 2020 10:52
[2020-11-29] MEDS ORDERED: LISI40TA4 PO (11:44)
[2020-11-29] MEDS: CHLORHEXIDINE GLUCONATE 0.12 % 15ML UDC (PERIDEX ORAL RINSE) SSP SCH ×2 (12:11→16:00)
[2020-11-29 12:54] LABS: BLOOD UREA NITROGEN 12 MG/DL (7-18); CALCIUM LEVEL 8.3 MG/DL (8.5-10.1); CARBON DIOXIDE LEVEL 27 MEQ/L (21-32); CHLORIDE LEVEL 99 MEQ/L (98-107); CREATININE FOR GFR 0.78 MG/DL (0.70-1.30); GLOMERULAR FILTRATION RATE > 60.0 (>60); GLUCOSE, FASTING 362 MG/DL (70-100); POTASSIUM SERUM 4.1 MEQ/L (3.5-5.1); SODIUM LEVEL 135 MEQ/L (136-145)
[2020-11-29] MEDS ORDERED: INSUHUMDS SC ×2 (12:57)
[2020-11-29] MEDS ORDERED: MAGNESIUM GLUCONATE 500 MG TAB PO SCH (13:00)
--- NOTE | 2020-11-29 13:47 | DS.PDOC ---
Discharge Summary General Date of Admission Nov 27, 2020 at 17:43 Date of Discharge 11/29/20 Discharge Summary PROCEDURES PERFORMED DURING STAY: [None]. ADMITTING DIAGNOSES: Hyperosmolar hyperglycemic state (HHS) Vomiting Hypertensive urgency Hypertension Type 2 diabetes DISCHARGE DIAGNOSES: Hyperosmolar hyperglycemic state (HHS) Vomiting Hypertensive urgency Hypertension Type 2 diabetes COMPLICATIONS/CHIEF COMPLAINT: Hyperglycemia. HISTORY OF PRESENT ILLNESS: Patient is 45 years old male with past medical history of prediabetes, DVT, obesity presented hospital with nausea, vomiting. Patient stated that for past few months he has been very thirsty, nauseated. Also he noticed polyuria. In ED patient was found to have no leukocytosis, so dium level 127, glucose level 769. Vital signs pertinent for systolic blood pressure 190. CT abdomen and pelvis negative for acute intra-abdominal process. HOSPITAL COURSE: During the hospital stay following issue addressed (1) Hyperosmolar hyperglycemic state (HHS) Resolved Most like is secondary to undiagnosed type 2 diabetes Patient received Insulin drip and IV potassium supplementation (2) Vomiting Resolved. Patient was able to tolerate breakfast Zofran IV (3) DVT (deep venous thrombosis) Continue Plavix and Eliquis (4) Hypertensive urgency Lisinopril 20 mg daily Labetalol IV once Hypertension Patient has most likely undiagnosed hypertension Lisinopril 20 mg daily Type 2 diabetes Diabetes diet The glucose level not optimally controlled, I increased the level of Detemir 40 units in the morning and 20 units in the evening Insulin sliding scale Diabetes poorly compensated, HbA1c 13 Patient will need close follow-up with primary care physician and ophth almologist DISCHARGE MEDICATIONS: Please see below. ALLERGIES: Please see below. PHYSICAL EXAMINATION ON DISCHARGE: VITAL SIGNS: Please see below. GENERAL APPEARANCE: Obese male HEENT: no scleral icterus, no JVD, EOMI CARDIOVASCULAR: S1S2 LUNGS: Diminished lung sounds ABDOMEN: soft & not tender w palpitation MUSCULOSKELETAL: no cyanosis, no swelling INTEGUMENT: no generalized pallor NEUROLOGICAL: cranial nerve function from 2-12 intact intact, follows commands, speech not dysarthric LABORATORY DATA: Please see below. PROGNOSIS: Fair ACTIVITY: [As tolerated]. DIET: Diabetes DISPOSITION: Home DISCHARGE INSTRUCTIONS: Check her blood glucose level before each meal ITEMS TO FOLLOWUP ON ON OUTPATIENT: Follow-up with asbestos worker helper, and PCP in 3-5 days DISCHARGE CONDITION: [Stable]. TIME SPENT ON DISCHARGE: 35minutes. Vital Signs/I&Os Vital Signs Date Time Temp Pulse Resp B/P (MAP) Pulse Ox O2 Delivery O2 Flow Rate FiO2 11/29/20 08:27 149/86 11/29/20 06:00 96.9 71 0 97 11/28/20 15:30 Room Air 11/28/20 06:00 2.0 I&O- Last 24 Hours up to 6 AM 11/29/20 06:00 Intake Total 4458.0 ml Output Total 1655 ml Balance 2803.0 ml Laboratory Data Labs 24H Laboratory Tests 2 11/28/20 17:01: Bedside Glucose (Misc Panel) 510*H 11/28/20 17:24: Bedside Glucose (Misc Panel) 459H 11/28/20 19:53: Bedside Glucose (Misc Panel) 410H 11/29/20 06:56: Bedside Glucose (Misc Panel) 291H 11/29/20 07:38: Nucleated Red Blood Cells % (auto) 0.0, Anion Gap 8, Glomerular Filtration Rate > 60.0, Calcium Level 7.9L, Magnesium Level 1.7L, Total Bilirubin 0.8, Aspartate Amino Transf (AST/SGOT) 41H, Alanine Aminotransferase (ALT/SGPT) 70, Alkaline Phosphatase 108, Total Protein 6.6, Albumin 2.9L, Albumin/Globulin Ratio 0.8 11/29/20 11:38: Bedside Glucose (Misc Panel) 346H 11/29/20 11:42: Anion Gap 9, Glomerular Filtration Rate > 60.0, Calcium Level 8.3L CBC/BMP Laboratory Tests 11/29/20 07:38 11/29/20 11:42 FSBS Laboratory Tests Test 11/28/20 17:01 11/28/20 17:24 11/28/20 19:53 11/29/20 06:56 Range/Units Bedside Glucose (Misc Panel) 510 459 410 291 70-105 MG/DL Test 11/29/20 11:38 Range/Units Bedside Glucose (Misc Panel) 346 70-105 MG/DL Microbiology Microbiology 11/27/20 Respiratory Virus Panel (PCR) ([facility]) - Final, Complete 11/27/20 Urine Culture - Final, Complete Yeast Like Organism Discharge Medications Scheduled Apixaban (Eliquis) 5 Mg Tablet, 5 MG PO BID, (Reported) Blood Sugar Diagnostic (Advanced Glucose Test Strips) 1 Each Strip, 1 STRIP XX ACHS Clopidogrel Bisulfate (Clopidogrel) 75 Mg Tablet, 75 MG PO QHS, (Reported) Insulin Glargine,Hum.rec.anlog (Lantus Solostar) 100 Unit/1 Ml Insuln.pen, 45 UNIT SC QPM Insulin Human Lispro (Humalog) 100 Unit/1 Ml Vial, 0 UNITS SC AC Insulin Human Lispro (Humalog) 100 Unit/1 Ml Vial, 0 UNITS SC QHS Lisinopril (Lisinopril) 40 Mg Tablet, 1 TAB PO DAILY Metformin HCl (Metformin HCl ER) 500 Mg Tab.er.24h, 1 TAB PO BID Allergies Coded Allergies: No Known Drug Allergies (Verified Allergy, Unknown, 02/03/20) ALFREDA MESA DO Nov 29, 2020 13:47
[2020-11-29 14:00] VITALS: BP 150/87
[2020-11-29] MEDS ORDERED: INSU1MIS20 SC (17:18)
[2020-11-30] MEDS ORDERED: lisinopriL 40 MG TAB PO SCH (09:00)
== END 2020-11-29 18:50 | disposition home or self-care (01) | DRG 420 ==
LOC: M ED 13:11 → M ED INP 17:43 → ENRESERV 23:18 → M PCU 23:59 → M MSPAV 11-28 15:30
PROVIDERS: ADMIT Internal Medicine; ATTEND Internal Medicine
DX: E11.00 Type 2 diabetes mellitus with hyperosmolarity without nonketotic hyperglycemic-hyperosmolar coma (NKHHC) (principal); E66.01 Morbid (severe) obesity due to excess calories; I10 Essential (primary) hypertension; E11.65 Type 2 diabetes mellitus with hyperglycemia; I16.0 Hypertensive urgency; Z79.01 Long term (current) use of anticoagulants; Z86.718 Personal history of other venous thrombosis and embolism; Z79.899 Other long term (current) drug therapy; F17.200 Nicotine dependence, unspecified, uncomplicated; E78.5 Hyperlipidemia, unspecified

== ENCOUNTER → 2021-02-04 | Outpatient (REF) | payer OTHER, MEDICAID ==
[~2021-02-04] MED LIST changes: +ALCOPAD25 TOP; +BLOOKIT21 XX; +GLUC1TES2 XX; +INSU1MIS20 SC; +INSUHUMDS SC; +LANC30MI XX; +LANTINJ4 SC; +LISI40TA4 PO; +METF-838 PO; +PEN1MIS21 SC
[2021-02-04 19:45] LABS: CREATININE, URINE 47.2 MG/DL; MALB URINE SIEMENS < 5.0 MG/L; MAU/CREAT RATIO 10.5 MCG/MG (0.0-30.0)
== END ==
LOC: M LAB REF 16:43
PROVIDERS: ATTEND Nurse Practitioner Family
DX: E11.65 Type 2 diabetes mellitus with hyperglycemia (principal)

== ENCOUNTER → 2021-04-23 | Outpatient (CLI) | payer OTHER, MEDICAID ==
[2021-04-23 10:49] LABS: BLOOD UREA NITROGEN 19 MG/DL (7-18); CALCIUM LEVEL 8.6 MG/DL (8.5-10.1); CARBON DIOXIDE LEVEL 25 MEQ/L (21-32); CHLORIDE LEVEL 107 MEQ/L (98-107); CREATININE FOR GFR 0.81 MG/DL (0.70-1.30); GLOMERULAR FILTRATION RATE > 60.0 (>60); GLUCOSE, FASTING 108 MG/DL (70-100); SODIUM LEVEL 141 MEQ/L (136-145)
[2021-04-25 17:07] LABS: C-PEPTIDE 4.9 ng/mL (1.1-4.4)
== END ==
LOC: M PLALAB 09:11
PROVIDERS: ATTEND Family Medicine Addiction Medicine
DX: E11.65 Type 2 diabetes mellitus with hyperglycemia (principal)

== ENCOUNTER 2021-05-21 10:05 | Emergency (ER) | payer OTHER, MEDICAID ==
[~2021-05-21] VITALS: Ht 175.3 cm; Wt 121.4 kg
[2021-05-21] MEDS ORDERED: STEG5TAB PO (10:23)
[2021-05-21] MEDS ORDERED: LANTINJ4 SC ×2 (10:26→12:49)
[2021-05-21] MEDS ORDERED: ADME100I SC (10:26)
[2021-05-21 11:11] LABS: BASO # 0.1 10^3/uL (0.0-0.2); BASO % 0.6 % (0.0-1.0); EOS # 0.3 10^3/uL (0.0-0.5); EOS % 2.9 % (0.0-3.0); HEMOGLOBIN 17.3 g/dl (13.5-17.5); LYMPH # 1.2 10^3/uL (1.5-5.0); LYMPH % 10.6 % (24.0-44.0); MEAN CORPUSCULAR HEMOGLOBIN 29.7 pg (27.0-33.0); MEAN CORPUSCULAR HGB CONC 33.9 g/dl (32.0-36.5); MEAN CORPUSCULAR VOLUME 87.6 fl (80.0-96.0); MONO # 1.6 10^3/uL (0.0-0.8); MONO % 13.9 % (2.0-8.0); NEUTROPHILS # 8.3 10^3/uL (1.5-8.5); NEUTROPHILS % 71.6 % (36.0-66.0); PLATELET COUNT, AUTOMATED 129 10^3/uL (150-450); RED BLOOD COUNT 5.82 10^6/uL (4.30-6.10)
--- NOTE | 2021-05-21 11:26 | REP ---
INDICATION: fever cough. COMPARISON: 11/27/2020. TECHNIQUE: Single portable AP view of the chest was performed. FINDINGS: There is no acute infiltrate or pulmonary edema. Lungs are clear. The heart is not significantly enlarged. The mediastinal silhouette is unremarkable. The visualized osseous structures are intact. There is an old healed right clavicular fracture. IMPRESSION: No acute pulmonary disease. <Electronically signed by Artem Renteria > 05/21/21 1122
[2021-05-21 11:35] LABS: BLOOD UREA NITROGEN 18 MG/DL (7-18); CALCIUM LEVEL 8.4 MG/DL (8.5-10.1); CARBON DIOXIDE LEVEL 27 MEQ/L (21-32); CHLORIDE LEVEL 104 MEQ/L (98-107); GLOMERULAR FILTRATION RATE > 60.0 (>60); GLUCOSE, FASTING 95 MG/DL (70-100); POTASSIUM SERUM 3.8 MEQ/L (3.5-5.1); SODIUM LEVEL 138 MEQ/L (136-145)
[2021-05-21 11:47] LABS: HEMOGLOBIN A1c 5.7 %
[2021-05-21 11:48] LABS: WHITE BLOOD COUNT 11.6 10^3/uL (4.0-10.0)
[2021-05-21] MEDS: ACETAMINOPHEN TAB 650MG DOSE (2X325MG) PO ONE (11:59)
[2021-05-21] MEDS ORDERED: CEPH500C PO (12:49)
[2021-05-21 14:33] VITALS: BP 155/94
== END 2021-05-21 14:42 | disposition home or self-care (01) ==
LOC: EDBD 10:05 → M ED 10:05
DX: E11.649 Type 2 diabetes mellitus with hypoglycemia without coma (principal); L03.011 Cellulitis of right finger; E66.9 Obesity, unspecified; F17.200 Nicotine dependence, unspecified, uncomplicated; Z79.01 Long term (current) use of anticoagulants; Z79.4 Long term (current) use of insulin; Z79.899 Other long term (current) drug therapy

== ENCOUNTER → 2021-08-29 | Outpatient (REF) | payer OTHER, MEDICAID ==
[~2021-08-29] MED LIST changes: +ADME100I SC; +CEPH500C PO; +STEG5TAB PO
== END ==
LOC: M LAB REF 16:31
PROVIDERS: ATTEND Physician Assistant
DX: R05.9 Cough, unspecified (principal); R53.83 Other fatigue